=== PATIENT | female | born 1930 | race Caucasian/White ===

== ENCOUNTER 2018-10-28 23:42 | Emergency (ER) | payer MEDICARE ==
[~2018-10-28] VITALS: Ht 144.8 cm; Wt 44.5 kg
--- OUTSIDE RECORDS SUMMARY | 2018-10-28 23:45 | XMS REPORT | Clinical Summary ---
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 Active warfarin (COUMADIN) 2.5 Take 2.5 mg 0 11/15/201 MG tablet by mouth 4 daily. Active predniSONE (DELTASONE) 5 Take 10 mg by 0 MG tablet mouth daily . Active ergocalciferol (VITAMIN Take 50,000 0 D2) 50,000 unit capsule Units by mouth once a week. Active ferrous sulfate 325 (65 Take 325 mg 0 FE) MG tablet by mouth daily with breakfast Pt dont take this med anymore. Active clopidogrel (PLAVIX) 75 Take 75 mg by 0 mg tablet mouth daily. Active hydroxychloroquine Take by mouth 0 (PLAQUENIL) 200 mg tablet daily. Active simvastatin (ZOCOR) 10 MG Take 10 mg by 0 tablet mouth nightly. Active amLODIPine (NORVASC) 5 MG Take 5 mg by 0 tablet mouth daily. Active traMADol (ULTRAM) 50 mg Take 1 tablet 30 tablet 0 tablet (50 mg total) 9 by mouth every 6 (six) hours as needed for Pain. 04/21/2018 Discontinued traMADol (ULTRAM) 50 mg Take 1 tablet 30 tablet 0 tablet (50 mg total) 6 by mouth every 6 (six) hours as needed for Pain. 04/26/2018 cefdinir (OMNICEF) 300 MG Take 1 10 capsule 0 capsule capsule (300 9 mg total) by mouth every 12 (twelve) hours for 5 days. 05/21/2018 metoprolol (TOPROL-XL) 50 Take 1 tablet 60 tablet 0 MG 24 hr tablet (50 mg total) 9 by mouth every 12 (twelve) hours for 30 days. 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 Paroxysmal atrial fibrillation 04/13/2018 PMR (polymyalgia rheumatica) 04/13/2018 Atrial fibrillation with RVR 07/08/2015 Hypotension 07/08/2015 Ischemic colitis 07/08/2015 Polymyalgia rheumatica 07/08/2015 Compression fracture of L4 lumbar vertebra 07/08/2015 CAD (coronary artery disease), [place] coronary artery 07/08/2015 Physical deconditioning 07/08/2015 Coronary atherosclerosis due to calcified coronary lesion of [place] artery 06/21/2015 Acute blood loss anemia 06/21/2015 Lower GI bleed 06/20/2015 Substernal chest pain 04/02/2015 Hypertension 04/02/2015 Precordial pain 03/25/2015 Encounters Care Team Description Date Type Specialty Jerrell Smith MD PACEMAKER GEN & LEADS - INSERTION W/ GENERAL ANESTHESIA (SING/DUAL/MULT) 04/19/2018 Surgery Jerrell Grande Jr., MD 04/19/2018 Anesthesia Event Jerrell Smith MD LASER EXTRACTION,LEAD 04/18/2018 Surgery Ayla Crump MD 04/18/2018 Anesthesia Event Gary Siddiqui MD Parhizgar, Alireza, MD Hyperlipidemia, unspecified hyperlipidemia type; Pacemaker infection, initial encounter ([facility]); Paroxysmal atrial fibrillation (HCC); PMR (polymyalgia rheumatica) ([facility]) 04/13/2018 [facility] Cardiology - Encounter 04/21/2018 Ellen Dorado Ahmad, MD 04/13/2018 Orders Only Internal Medicine after 10/27/2017 Immunizations Name Dates Previously Given Next Due Tdap 11/26/2013 Family History Medical History Relation Name Comments Unremarkable Neg Hx Social History Date Tobacco Use Types Packs/Day Years Used Never Smoker Alcohol Use Drinks/Week oz/Week Comments No Sex Assigned at Date Recorded Not on file Industry Job Start Date Occupation Not on file Not on file Not on file Travel End Travel History Travel Start No recent travel history available. Last Filed Vital Signs Time Taken Vital Sign Reading 04/21/2018 7:43 AM PHP MYSQL DEVELOPER Blood Pressure 138/66 04/21/2018 7:43 AM PHP MYSQL DEVELOPER Pulse 69 04/21/2018 7:43 AM PHP MYSQL DEVELOPER Temperature 36.6 C (97.8 F) 04/21/2018 7:43 AM PHP MYSQL DEVELOPER Respiratory Rate 20 04/21/2018 7:43 AM PHP MYSQL DEVELOPER Oxygen Saturation 97% - Inhaled Oxygen - Concentration 04/21/2018 7:43 AM PHP MYSQL DEVELOPER Weight 42.3 kg (93 lb 4.8 oz) 04/13/2018 8:41 PM PHP MYSQL DEVELOPER Height 146.3 cm (4' 9.6") 04/21/2018 7:43 AM PHP MYSQL DEVELOPER Body Mass Index 19.77 Plan of Treatment Not on file Implants Device Identifier Shelf Expiration Date Model / Serial / Lot Implanted Type Area [facility] 06/09/2019 [id number] / [id number] / Pacemkr Sgl Micra Transcath - Pacemakers Right: Heart [employer]: [id number] CARD Implanted: Qty: 1 on 04/19/2018 by RHY:Jerrell Yan MD S 06/03/2016 [id number] / / [id number] Promus Premier [place] Implanted: Qty: 1 on 03/27/2015 [employer] 08/25/2016 [id number] / [id number] / Advisa Dr Luis Felipe Magana / [id number] [employer] Implanted: Qty: 1 on 04/17/2015 Procedures Comments Procedure Name Priority Date/Time Associated Diagnosis ARRYTHMIA IMPLANT REPORT 06/30/2018 - SCAN 2:22 PM CDT RHYTHM STRIP - SCAN 06/16/2018 9:01 AM CDT ARRYTHMIA IMPLANT REPORT 05/03/2018 - SCAN 3:01 PM PHP MYSQL DEVELOPER RHYTHM STRIP - SCAN 05/03/2018 3:00 PM PHP MYSQL DEVELOPER CARDIAC CATH REPORT - 05/03/2018 SCAN 3:00 PM PHP MYSQL DEVELOPER CBC W/PLT COUNT & AUTO Routine 04/21/2018 DIFFERENTIAL 6:24 AM PHP MYSQL DEVELOPER PT/APTT Routine 04/21/2018 6:24 AM PHP MYSQL DEVELOPER MAGNESIUM Routine 04/21/2018 6:24 AM PHP MYSQL DEVELOPER CBC W/PLT COUNT & AUTO Routine 04/21/2018 DIFFERENTIAL 6:24 AM PHP MYSQL DEVELOPER PHOSPHORUS Routine 04/21/2018 6:24 AM PHP MYSQL DEVELOPER CALCIUM, IONIZED Routine 04/21/2018 6:24 AM PHP MYSQL DEVELOPER BASIC METABOLIC PANEL (7) Routine 04/21/2018 6:24 AM PHP MYSQL DEVELOPER APTT Routine 04/21/2018 12:00 AM PHP MYSQL DEVELOPER ECHOCARDIOGRAM REPORT - 04/20/2018 SCAN 1:52 PM PHP MYSQL DEVELOPER APTT Routine 04/20/2018 1:20 PM PHP MYSQL DEVELOPER PROTHROMBIN TIME/INR Routine 04/20/2018 1:20 PM PHP MYSQL DEVELOPER LIMITED 2D ECHOCARDIOGRAM NEO 04/20/2018 10:32 AM PHP MYSQL DEVELOPER CBC W/PLT COUNT & AUTO Routine 04/20/2018 DIFFERENTIAL 4:58 AM PHP MYSQL DEVELOPER BASIC METABOLIC PANEL (7) Routine 04/20/2018 4:58 AM PHP MYSQL DEVELOPER CBC W/PLT COUNT & AUTO Routine 04/20/2018 DIFFERENTIAL 4:58 AM PHP MYSQL DEVELOPER APTT Routine 04/20/2018 4:58 AM PHP MYSQL DEVELOPER XR CHEST 1 VIEW Routine 04/19/2018 PORTABLE/BEDSIDE 8:48 PM PHP MYSQL DEVELOPER ECHOCARDIOGRAM REPORT - 04/19/2018 SCAN 7:50 PM PHP MYSQL DEVELOPER TRANSFUSION SERVICE 04/19/2018 REPORT - SCAN 6:00 PM PHP MYSQL DEVELOPER PACEMAKER GEN & LEADS - 04/19/2018 AV block INSERTION W/ GENERAL 5:13 PM PHP MYSQL DEVELOPER ANESTHESIA (SING/DUAL/MULT) Case Notes [id number] LIMITED 2D ECHOCARDIOGRAM NEO 04/19/2018 2:52 PM PHP MYSQL DEVELOPER APTT Routine 04/19/2018 1:58 AM PHP MYSQL DEVELOPER CBC W/PLT COUNT & AUTO Routine 04/19/2018 DIFFERENTIAL 1:54 AM PHP MYSQL DEVELOPER MAGNESIUM Routine 04/19/2018 1:54 AM PHP MYSQL DEVELOPER PHOSPHORUS Routine 04/19/2018 1:54 AM PHP MYSQL DEVELOPER CALCIUM, IONIZED Routine 04/19/2018 1:54 AM PHP MYSQL DEVELOPER BASIC METABOLIC PANEL (7) Routine 04/19/2018 1:54 AM PHP MYSQL DEVELOPER CBC W/PLT COUNT & AUTO Routine 04/19/2018 DIFFERENTIAL 1:54 AM PHP MYSQL DEVELOPER APTT Routine 04/18/2018 6:32 PM PHP MYSQL DEVELOPER TRANSFUSION SERVICE 04/18/2018 REPORT - SCAN 6:00 PM PHP MYSQL DEVELOPER PREPARE RBC STAT 04/18/2018 12:15 PM PHP MYSQL DEVELOPER XR CHEST 1 VIEW Routine 04/18/2018 PORTABLE/BEDSIDE 12:14 PM PHP MYSQL DEVELOPER SURGICALLY OBTAINED STAT 04/18/2018 CULTURE + GRAM STAIN 11:25 AM PHP MYSQL DEVELOPER FUNGUS CULTURE + SMEAR STAT 04/18/2018 11:25 AM PHP MYSQL DEVELOPER ANAEROBIC CULTURE STAT 04/18/2018 11:25 AM PHP MYSQL DEVELOPER AFB CULTURE + SMEAR STAT 04/18/2018 11:25 AM PHP MYSQL DEVELOPER SURGICALLY OBTAINED STAT 04/18/2018 CULTURE + GRAM STAIN 11:18 AM PHP MYSQL DEVELOPER FUNGUS CULTURE + SMEAR STAT 04/18/2018 11:18 AM PHP MYSQL DEVELOPER ANAEROBIC CULTURE STAT 04/18/2018 11:18 AM PHP MYSQL DEVELOPER AFB CULTURE + SMEAR STAT 04/18/2018 11:18 AM PHP MYSQL DEVELOPER SURGICALLY OBTAINED STAT 04/18/2018 CULTURE + GRAM STAIN 11:06 AM PHP MYSQL DEVELOPER FUNGUS CULTURE + SMEAR STAT 04/18/2018 11:06 AM PHP MYSQL DEVELOPER ANAEROBIC CULTURE STAT 04/18/2018 11:06 AM PHP MYSQL DEVELOPER AFB CULTURE + SMEAR STAT 04/18/2018 11:06 AM PHP MYSQL DEVELOPER ANESTHESIA ABY Routine 04/18/2018 9:53 AM PHP MYSQL DEVELOPER ABY 04/18/2018 Pacemaker infection, 8:45 AM PHP MYSQL DEVELOPER initial encounter (HCC) LASER EXTRACTION,LEAD 04/18/2018 Pacemaker infection, 8:45 AM PHP MYSQL DEVELOPER initial encounter (HCC) CBC W/PLT COUNT & AUTO Routine 04/18/2018 DIFFERENTIAL 2:07 AM PHP MYSQL DEVELOPER PROTHROMBIN TIME/INR STAT 04/18/2018 2:07 AM PHP MYSQL DEVELOPER MAGNESIUM Routine 04/18/2018 2:07 AM PHP MYSQL DEVELOPER PHOSPHORUS Routine 04/18/2018 2:07 AM PHP MYSQL DEVELOPER CALCIUM, IONIZED Routine 04/18/2018 2:07 AM PHP MYSQL DEVELOPER BASIC METABOLIC PANEL (7) Routine 04/18/2018 2:07 AM PHP MYSQL DEVELOPER CBC W/PLT COUNT & AUTO Routine 04/18/2018 DIFFERENTIAL 2:07 AM PHP MYSQL DEVELOPER APTT Routine 04/18/2018 2:07 AM PHP MYSQL DEVELOPER VANCOMYCIN LEVEL, TROUGH Timed 04/18/2018 2:07 AM PHP MYSQL DEVELOPER APTT Routine 04/17/2018 8:14 PM PHP MYSQL DEVELOPER APTT Routine 04/17/2018 12:20 PM PHP MYSQL DEVELOPER TYPE AND SCREEN, STAT 04/17/2018 AUTOMATED 7:11 AM PHP MYSQL DEVELOPER CBC W/PLT COUNT & AUTO Routine 04/17/2018 DIFFERENTIAL 12:47 AM PHP MYSQL DEVELOPER MAGNESIUM Routine 04/17/2018 12:47 AM PHP MYSQL DEVELOPER PHOSPHORUS Routine 04/17/2018 12:47 AM PHP MYSQL DEVELOPER CALCIUM, IONIZED Routine 04/17/2018 12:47 AM PHP MYSQL DEVELOPER APTT Routine 04/17/2018 12:47 AM PHP MYSQL DEVELOPER BASIC METABOLIC PANEL (7) Routine 04/17/2018 12:47 AM PHP MYSQL DEVELOPER CBC W/PLT COUNT & AUTO Routine 04/17/2018 DIFFERENTIAL 12:47 AM PHP MYSQL DEVELOPER VANCOMYCIN LEVEL, TROUGH Timed 04/17/2018 12:47 AM PHP MYSQL DEVELOPER CBC W/PLT COUNT & AUTO Routine 04/16/2018 DIFFERENTIAL 12:58 AM PHP MYSQL DEVELOPER APTT Routine 04/16/2018 12:58 AM PHP MYSQL DEVELOPER PROTHROMBIN TIME/INR Routine 04/16/2018 12:58 AM PHP MYSQL DEVELOPER BASIC METABOLIC PANEL (7) Routine 04/16/2018 12:58 AM PHP MYSQL DEVELOPER CBC W/PLT COUNT & AUTO Routine 04/16/2018 DIFFERENTIAL 12:58 AM PHP MYSQL DEVELOPER APTT Routine 04/15/2018 6:01 PM PHP MYSQL DEVELOPER TRANSFUSION SERVICE 04/15/2018 REPORT - SCAN 6:00 PM PHP MYSQL DEVELOPER APTT Routine 04/15/2018 11:11 AM PHP MYSQL DEVELOPER CBC W/PLT COUNT & AUTO Routine 04/15/2018 DIFFERENTIAL 3:48 AM PHP MYSQL DEVELOPER MAGNESIUM Routine 04/15/2018 3:48 AM PHP MYSQL DEVELOPER PHOSPHORUS Routine 04/15/2018 3:48 AM PHP MYSQL DEVELOPER BASIC METABOLIC PANEL (7) Routine 04/15/2018 3:48 AM PHP MYSQL DEVELOPER CBC W/PLT COUNT & AUTO Routine 04/15/2018 DIFFERENTIAL 3:48 AM PHP MYSQL DEVELOPER APTT Routine 04/15/2018 3:16 AM PHP MYSQL DEVELOPER CALCIUM, IONIZED Routine 04/15/2018 3:16 AM PHP MYSQL DEVELOPER PROTHROMBIN TIME/INR Routine 04/15/2018 3:16 AM PHP MYSQL DEVELOPER VANCOMYCIN LEVEL, TROUGH Timed 04/14/2018 11:20 PM PHP MYSQL DEVELOPER APTT Routine 04/14/2018 11:20 PM PHP MYSQL DEVELOPER APTT Routine 04/14/2018 3:59 PM PHP MYSQL DEVELOPER CBC W/PLT COUNT & AUTO Routine 04/14/2018 DIFFERENTIAL 5:37 AM PHP MYSQL DEVELOPER TYPE AND SCREEN, Routine 04/14/2018 AUTOMATED 5:37 AM PHP MYSQL DEVELOPER APTT Routine 04/14/2018 5:37 AM PHP MYSQL DEVELOPER PROTHROMBIN TIME/INR Routine 04/14/2018 5:37 AM PHP MYSQL DEVELOPER TSH/FREE T4 IF INDICATED Routine 04/14/2018 5:37 AM PHP MYSQL DEVELOPER MAGNESIUM Routine 04/14/2018 5:37 AM PHP MYSQL DEVELOPER PHOSPHORUS Routine 04/14/2018 5:37 AM PHP MYSQL DEVELOPER CALCIUM, IONIZED Routine 04/14/2018 5:37 AM PHP MYSQL DEVELOPER BASIC METABOLIC PANEL (7) Routine 04/14/2018 5:37 AM PHP MYSQL DEVELOPER CBC W/PLT COUNT & AUTO Routine 04/14/2018 DIFFERENTIAL 5:37 AM PHP MYSQL DEVELOPER APTT Routine 04/13/2018 6:49 PM PHP MYSQL DEVELOPER PROTHROMBIN TIME/INR Routine 04/13/2018 6:49 PM PHP MYSQL DEVELOPER BASIC METABOLIC PANEL (7) Routine 04/13/2018 6:49 PM PHP MYSQL DEVELOPER BLOOD CULTURE Routine 04/13/2018 6:49 PM PHP MYSQL DEVELOPER BLOOD CULTURE Routine 04/13/2018 6:49 PM PHP MYSQL DEVELOPER after 10/27/2017 Results * ARRYTHMIA IMPLANT REPORT - SCAN (06/30/2018 2:22 PM CDT) Only the most recent of 2 results within the time period is included. Narrative Performed At * RHYTHM STRIP - SCAN (06/16/2018 9:01 AM CDT) Only the most recent of 2 results within the time period is included. Narrative Performed At * CARDIAC CATH REPORT - SCAN (05/03/2018 3:00 PM PHP MYSQL DEVELOPER) Narrative Performed At * PT/aPTT (04/21/2018 6:24 AM PHP MYSQL DEVELOPER) Protime 16.1 (H) 11.7 - 14.7 seconds [facility] INR 1.3 <=5.9 [facility] PTT 103.9 (H) 22.5 - 36.0 seconds [facility] Specimen Blood Narrative Performed At RECOMMENDED COUMADIN/WARFARIN INR THERAPY RANGES [facility] STANDARD DOSE: 2.0 - 3.0 Includes: PROPHYLAXIS for venous thrombosis, [facility] systemic embolization; TREATMENT for venous thrombosis and/or pulmonary embolus. HIGH RISK: Target INR is 2.5-3.5 for patients with mechanical heart valves. Performing Organization Address City/[facility] Hospitalcode Phone Number [address] [address] [facility] * Calcium, Ionized (04/21/2018 6:24 AM PHP MYSQL DEVELOPER) Only the most recent of 6 results within the time period is included. Calcium, Ion 1.18 1.12 - 1.27 mmol/L [facility] pH, Blood 7.36 [facility] Specimen Blood Performing Organization Address City/[facility]/Zipcode Phone Number [facility] [address] [place] [address] [facility] * CBC with platelet count + automated diff (04/21/2018 6:24 AM PHP MYSQL DEVELOPER) Only the most recent of 8 results within the time period is included. WBC 5.0 3.5 - 10.5 K/L [facility] RBC 4.11 3.93 - 5.22 M/L [facility] Hemoglobin 10.6 (L) 11.2 - 15.7 GM/DL [facility] Hematocrit 33.9 (L) 34.1 - 44.9 % [facility] MCV 82.5 79.4 - 94.8 fL [facility] MCH 25.8 25.6 - 32.2 pg [facility] MCHC 31.3 (L) 32.2 - 35.5 GM/DL [facility] RDW 18.6 (H) 11.7 - 14.4 % [facility] Platelets 191 150 - 450 K/CU MM [facility] MPV 10.9 9.4 - 12.3 fL [facility] nRBC 0 0 - 0 /100 WBC [facility] % Neutros 60 % [facility] % Lymphs 24 % [facility] % Monos 10 % [facility] % Eos 6 % [facility] % Baso 1 % [facility] # Neutros 2.98 1.56 - 6.13 K/L [facility] # Lymphs 1.17 (L) 1.18 - 3.74 K/L [facility] # Monos 0.49 (H) 0.24 - 0.36 K/L [facility] # Eos 0.29 0.04 - 0.36 K/L [facility] # Baso 0.04 0.01 - 0.08 K/L [facility] Immature 0 0 - 1 % [facility] Specimen Blood Performing Organization Address City/[facility] Hospitalcode Phone Number [facility] [address] [place] [address] [phone] [place] [address] * Phosphorus (04/21/2018 6:24 AM PHP MYSQL DEVELOPER) Only the most recent of 6 results within the time period is included. Phosphorus 3.3 2.3 - 4.7 mg/dL [facility] Specimen Blood Performing Organization Address City/[facility]/Zipcode Phone Number [facility] [address] [place] [address] [phone] [place] [address] * Magnesium (04/21/2018 6:24 AM PHP MYSQL DEVELOPER) Only the most recent of 6 results within the time period is included. Magnesium 1.9 1.6 - 2.6 mg/dL [facility] Specimen Blood Performing Organization Address City/[facility] Hospitalcomn Phone Number [address] [address] [phone] [place] [address] * Basic Metabolic Panel (04/21/2018 6:24 AM PHP MYSQL DEVELOPER) Only the most recent of 9 results within the time period is included. Sodium 140 136 - 145 meq/L [facility] Potassium 3.6 3.5 - 5.1 meq/L [facility] Chloride 105 98 - 107 meq/L [facility] CO2 26 22 - 29 meq/L [facility] BUN 12 7 - 21 mg/dL [facility] Creatinine 0.72 0.57 - 1.25 mg/dL [facility] Glucose 102 70 - 105 mg/dL [facility] Calcium 9.7 8.4 - 10.2 mg/dL [facility] EGFR 77Comment: ESTIMATED GFR IS mL/min/1.73 sq m [facility] NOT ACCURATE CREATININE [facility] CLEARANCE IN PREDICTING GLOMERULAR FILTRATION RATE. ESTIMATED GFR IS NOT APPLICABLE FOR DIALYSIS PATIENTS. Specimen Blood Performing Organization Address City/[facility]/[place] [address] [phone] [place] [address] * aPTT (04/21/2018 12:00 AM PHP MYSQL DEVELOPER) Only the most recent of 17 results within the time period is included. PTT 55.8 (H) 22.5 - 36.0 seconds [facility] Specimen Blood Performing Organization Address [facility] Hospitalcode Phone Number [address] [address] [phone] [place] [address] * ECHOCARDIOGRAM REPORT - SCAN (04/20/2018 1:52 PM PHP MYSQL DEVELOPER) Narrative Performed At * Prothrombin time/INR (04/20/2018 1:20 PM PHP MYSQL DEVELOPER) Only the most recent of 6 results within the time period is included. Protime 14.9 (H) 11.7 - 14.7 seconds [facility] INR 1.2 <=5.9 [facility] Specimen Blood Narrative Performed At RECOMMENDED COUMADIN/WARFARIN INR THERAPY RANGES [facility] STANDARD DOSE: 2.0 - 3.0 Includes: PROPHYLAXIS for venous thrombosis, [facility] systemic embolization; TREATMENT for venous thrombosis and/or pulmonary embolus. HIGH RISK: Target INR is 2.5-3.5 for patients with mechanical heart valves. Performing Organization Address [facility] Hospitalcode Phone Number [place] [phone] * Limited 2D Echocardiogram (04/20/2018 10:32 AM PHP MYSQL DEVELOPER) Ejection Fraction [facility] Specimen Narrative Performed At Transthoracic Echocardiography Report (TTE) [facility]ographics [facility] Patient Name Radha HUYNHte of Study 04/20/2018 LOREN [id number] Female Visit Number [id number] Room Number C622 Number Date of Birth2Referring Physician Luis Allan MD Age87 year(s)Medical Collector Baldomero Woodceli Interpreting Prabhjot Chi Physician Fellow SUNITA Lundberg Procedure Type of Study TTE procedure:LIMITED 2D ECHOCARDIOGRAM (NEO) Indications:Suspected Pericardial conditions. Clinical History HGB 10.5 HCT 34.2 % ANEMIA CAD HLD HTN fib pneumonia s/p micra leadless pacemaker 04/19/18 Height: 58.6 inches Weight: 41.28 kg (91 lbs) BSA: 1.31 m^2 BMI: 18.63 kg/m^2 HR: 104 bpm BP: 118/68 mmHg Summary The left ventricle is chamber size (by vol index) is normal (female - LVED vol - 29-61ml/m2). No evidence of LV hypertrophy. All of the LV segments contract normally . LVEF by [place]'s method of disk assessment is normal (>60%) . RV chamber size is moderately enlarged . Global RV systolic function is normal . Oazeeqgz-hf-bmuasp tricuspid regurgitation. Estimated peak systolic pressure is at least 40-45 mmHg. Previous Study On comparison with prior exam on 04/19/18 , there are no significant changes. Signature Findings Technical Quality: Technically adequate exam. Rhythm/BPAtrial fibrillation during the exam. Left Ventricle The left ventricle is chamber size (by vol index) is normal (female - LVED vol - 29-61ml/m2). No evidence of LV hypertrophy. All of the LV segments contract normally . LVEF by [place]'s method of disk assessment is normal (>60%) . Left AtriumLA size is severely enlarged (>48 ml/m2) . Right VentricleRV chamber size is moderately enlarged . Global RV systolic function is normal . Right Atrium RA cavity size is severely enlarged . Aortic Valve Normal AoV structure. Mitral Valve Mild MV leaflet thickening. Mild mitral annular calcification. Tricuspid ValveTV structure is normal. Ixpcauxf-dn-ccmjju tricuspid regurgitation. Estimated peak systolic pressure is at least 40-45 mmHg. Pulmonic Valve Normal PV structure. AortaAortic root size (SInus of Valsalva diameter) is normal . PericardiumNo pericardial effusion is visualized. IVC/SVC/PA/PV/PleuralThe estimated RA pressure by IVC dynamics 5-10mmHg. Chambers/Structures Left Atrium LA Volume: 101.44 mlLA Area: 28.47 cm^2 LA Vol. Index: 77 ml/m^2 Left Ventricle LVIDd: 3.79 cm LVIDs: 3.27 cm LV Septum Diastolic: 0.75 cm LV PW Diastolic: 0.9 cm LV FS: 13.7 % LVEDV [place]'s:42.32 ml LVESV [place]'s:18.91 mlLVEDVI: 32 ml/m^2 LVEF [place]'s: 55.3 %LVESVI: 14 ml/m^2 LVOT Diameter: 2.12 cm Right Atrium RA Vol. (Sngl Plane): 75.7 ml Doppler/Quantitative Measurements LVOT LVOT Diameter: 2.12 cm LVOT Area: 3.53 cm^2 Tricuspid Valve TR Velocity: 2.91 m/s TR Gradient: 33.87 mmHg Procedure Note Interface, External Ris In - 04/20/2018 1:19 PM PHP MYSQL DEVELOPER Transthoracic Echocardiography Report (TTE) Demographics Patient Name VANIA HUYNH Date of Study 04/20/2018 LOREN N [id number] Gender Female Visit Number [id number] Race Unknown Room Number C622 Number Date of 1930 Referring Physician Luis Allan MD Age 87 year(s) Medical Collector Baldomero Andrade Interpreting Prabhjot Chi, Physician Fellow SUNITA Lundberg Procedure Type of Study TTE procedure:LIMITED 2D ECHOCARDIOGRAM (NEO) Indications:Suspected Pericardial conditions. Clinical History HGB 10.5 HCT 34.2 % ANEMIA CAD HLD HTN fib pneumonia s/p micra leadless pacemaker 04/19/18 Height: 58.6 inches Weight: 41.28 kg (91 lbs) BSA: 1.31 m^2 BMI: 18.63 kg/m^2 HR: 104 bpm BP: 118/68 mmHg Summary The left ventricle is chamber size (by vol index) is normal (female - LVED vol - 29-61ml/m2). No evidence of LV hypertrophy. All of the LV segments contract normally . LVEF by [place]'s method of disk assessment is normal (>60%) . RV chamber size is moderately enlarged . Global RV systolic function is normal . Ivbxqklj-jg-ntymcp tricuspid regurgitation. Estimated peak systolic pressure is at least 40-45 mmHg. Previous Study On comparison with prior exam on 04/19/18 , there are no significant changes. Signature Findings Technical Quality: Technically adequate exam. Rhythm/BP Atrial fibrillation during the exam. Left Ventricle The left ventricle is chamber size (by vol index) is normal (female - LVED vol - 29-61ml/m2). No evidence of LV hypertrophy. All of the LV segments contract normally . LVEF by [place]'s method of disk assessment is normal (>60%) . Left Atrium LA size is severely enlarged (>48 ml/m2) . Right Ventricle RV chamber size is moderately enlarged . Global RV systolic function is normal . Right Atrium RA cavity size is severely enlarged . Aortic Valve Normal AoV structure. Mitral Valve Mild MV leaflet thickening. Mild mitral annular calcification. Tricuspid Valve TV structure is normal. Mpwokwfl-eb-ehnduy tricuspid regurgitation. Estimated peak systolic pressure is at least 40-45 mmHg. Pulmonic Valve Normal PV structure. Aorta Aortic root size (SInus of Valsalva diameter) is normal . Pericardium No pericardial effusion is visualized. IVC/SVC/PA/PV/Pleural The estimated RA pressure by IVC dynamics 5-10mmHg. Chambers/Structures Left Atrium LA Volume: 101.44 ml LA Area: 28.47 cm^2 LA Vol. Index: 77 ml/m^2 Left Ventricle LVIDd: 3.79 cm LVIDs: 3.27 cm LV Septum Diastolic: 0.75 cm LV PW Diastolic: 0.9 cm LV FS: 13.7 % LVEDV France's:42.32 ml LVESV France's:18.91 ml LVEDVI: 32 ml/m^2 LVEF France's: 55.3 % LVESVI: 14 ml/m^2 LVOT Diameter: 2.12 cm Right Atrium RA Vol. (Sngl Plane): 75.7 ml Doppler/Quantitative Measurements LVOT LVOT Diameter: 2.12 cm LVOT Area: 3.53 cm^2 Tricuspid Valve TR Velocity: 2.91 m/s TR Gradient: 33.87 mmHg Performing Organization Address City/State/Zipcode Phone Number [facility] * XR chest 1 view portable / bedside (04/19/2018 8:48 PM PHP MYSQL DEVELOPER) Only the most recent of 2 results within the time period is included. Specimen Narrative Performed At FINAL REPORT [facility] History: Postop leadless pacemaker placement. Comparison: 04/18/2018 Findings: A single view of the chest is submitted. The examination is limited by rotation to the left. An intraventricular leadless pacemaker overlies the left heart shadow. The cardiac silhouette is within normal limits for size. There is atherosclerotic calcification of the aorta. The lung volumes remain low. Mild central pulmonary vascular prominence may relate to low lung volumes or represent mild vascular engorgement. There is no pneumothorax, large pleural effusion or acute bony abnormality. Signed: Juan Gil MD Report Verified Date/Time:04/19/2018 21:20:09 Reading Location: [address] Reading Room Procedure Note Interface, External Ris In - 04/19/2018 9:22 PM PHP MYSQL DEVELOPER FINAL REPORT History: Postop leadless pacemaker placement. Comparison: 04/18/2018 Findings: A single view of the chest is submitted. The examination is limited by rotation to the left. An intraventricular leadless pacemaker overlies the left heart shadow. The cardiac silhouette is within normal limits for size. There is atherosclerotic calcification of the aorta. The lung volumes remain low. Mild central pulmonary vascular prominence may relate to low lung volumes or represent mild vascular engorgement. There is no pneumothorax, large pleural effusion or acute bony abnormality. Signed: Juan Gil MD Report Verified Date/Time: 04/19/2018 21:20:09 Reading Location: [address] Reading Room Performing Organization Address City/State/Zipcode Phone Number GE [facility] * ECHOCARDIOGRAM REPORT - SCAN (04/19/2018 7:50 PM PHP MYSQL DEVELOPER) Narrative Performed At * TRANSFUSION SERVICE REPORT - SCAN (04/19/2018 6:00 PM PHP MYSQL DEVELOPER) Only the most recent of 3 results within the time period is included. 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 Coulter, RDCSPhysician MD Procedure Type of Study TTE procedure:LIMITED 2D ECHOCARDIOGRAM (NEO) Indications:Suspected Pericardial conditions. Clinical History Anemia, CAD, PCI (2006), HLD, HTN, PAF, PNA, PPM (04/17/15), PMR HGB 9.8 HCT 31.7 % Height: 59 inches Weight: 41.28 kg (91 lbs) BSA: 1.32 m^2 BMI: 18.38 kg/m^2 HR: 92 bpm BP: 129/61 mmHg Summary 1. No significant pericardial effusion is visualized. 2. Estimated LVEF by qualitative assessment is increased (>70%) . 3. The estimated RA pressure by IVC dynamics 11-15mmHg . RV chamber size appears moderately enlarged by limited views . Global RV systolic function is normal . 4. Severe biatrial enlargement. Previous Study No prior studies available for comparison. Signature Findings Technical Quality: Good visualization Rhythm/BPAtrial fibrillation with rapid ventricular response. Left Ventricle The LV endocardium is adequately visualized. The left ventricle is chamber size (by vol index) is normal (female - LVED vol - 29-61ml/m2). Normal LV wall thickness. Global LV systolic function hyperdynamic . Estimated LVEF by qualitative assessment is increased (>70%) . Left AtriumLA size is severely enlarged (>48 ml/m2) . Right VentricleRV chamber size appears moderately enlarged by limited views . Global RV systolic function is normal . Right Atrium RA size is severely dilated. Aortic Valve Normal AoV structure by available views. Mitral Valve Mild mitral annular calcification. Tricuspid ValveTV structure is normal. Pulmonic Valve PV is not visualized. AortaAortic root size (SInus of Valsalva diameter) is normal . PericardiumNo significant pericardial effusion is visualized. IVC/SVC/PA/PV/PleuralThe estimated RA pressure by IVC dynamics 11-15mmHg . The inferior vena cava size is mildly increased . The inferior vena cava is adequately visualized. Chambers/Structures Left Atrium LA Volume: 108.35 mlLA Area: 30.15 cm^2 LA Vol. Index: 82 ml/m^2 Left Ventricle LVIDd: 4.44 cm LVIDs: 2.59 cm LV Septum Diastolic: 0.73 cm LV PW Diastolic: 0.82 cmLV FS: 41.7 % LVEDV France's:49.12 ml LVEDVI: 37 ml/m^2 LVOT Diameter: 1.88 cm Aorta Ao Root S of Anali.: 2.69 cm Doppler/Quantitative Measurements LVOT LVOT Diameter: 1.88 cm LVOT Area: 2.78 cm^2 Procedure Note Interface, External Ris In - 04/19/2018 7:29 PM PHP MYSQL DEVELOPER Transthoracic Echocardiography Report (TTE) Demographics Patient Name VANIA HUYNH Date of Study 04/19/2018 LOREN Gender Female Visit Number [id number] Race Unknown Room Number 1160 Number Date of 1930 Referring Physician Luis Allan MD Age 87 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 Clinical History Anemia, CAD, PCI (2006), HLD, HTN, PAF, PNA, PPM (04/17/15), PMR HGB 9.8 HCT 31.7 % Height: 59 inches Weight: 41.28 kg (91 lbs) BSA: 1.32 m^2 BMI: 18.38 kg/m^2 HR: 92 bpm BP: 129/61 mmHg Summary 1. No significant pericardial effusion is visualized. 2. Estimated LVEF by qualitative assessment is increased (>70%) . 3. The estimated RA pressure by IVC dynamics 11-15mmHg . RV chamber size appears moderately enlarged by limited views . Global RV systolic function is normal . 4. Severe biatrial enlargement. Previous Study No prior studies available for comparison. Signature Findings Technical Quality: Good visualization Rhythm/BP Atrial fibrillation with rapid ventricular response. Left Ventricle The LV endocardium is adequately visualized. The left ventricle is chamber size (by vol index) is normal (female - LVED vol - 29-61ml/m2). Normal LV wall thickness. Global LV systolic function hyperdynamic . Estimated LVEF by qualitative assessment is increased (>70%) . Left Atrium LA size is severely enlarged (>48 ml/m2) . Right Ventricle RV chamber size appears moderately enlarged by limited views . Global RV systolic function is normal . Right Atrium RA size is severely dilated. Aortic Valve Normal AoV structure by available views. Mitral Valve Mild mitral annular calcification. Tricuspid Valve TV structure is normal. Pulmonic Valve PV is not visualized. Aorta Aortic root size (SInus of Valsalva diameter) is normal . Pericardium No significant pericardial effusion is visualized. IVC/SVC/PA/PV/Pleural The estimated RA pressure by IVC dynamics 11-15mmHg . The inferior vena cava size is mildly increased . The inferior vena cava is adequately visualized. Chambers/Structures Left Atrium LA Volume: 108.35 ml LA Area: 30.15 cm^2 LA Vol. Index: 82 ml/m^2 Left Ventricle LVIDd: 4.44 cm LVIDs: 2.59 cm LV Septum Diastolic: 0.73 cm LV PW Diastolic: 0.82 cm LV FS: 41.7 % LVEDV France's:49.12 ml LVEDVI: 37 ml/m^2 LVOT Diameter: 1.88 cm Aorta Ao Root S of Anali.: 2.69 cm Doppler/Quantitative Measurements LVOT LVOT Diameter: 1.88 cm LVOT Area: 2.78 cm^2 Performing Organization Address City/State/Zipcode Phone Number [facility] [employer] [email or web address] * Prepare RBC (04/18/2018 12:15 PM PHP MYSQL DEVELOPER) CROSSMATCH COMPATIBLE SAFETRACE TX Unit ABO A Pos SAFETRACE TX UNIT NUMBER [id number] SAFETRACE TX Status RETURNED FROM ISSUE SAFETRACE TX Blood Bank Product RED BLOOD CELLS SAFETRACE TX PRODUCT CODE [id number] SAFETRACE TX CROSSMATCH COMPATIBLE SAFETRACE TX Unit ABO A Pos SAFETRACE TX UNIT NUMBER [id number] SAFETRACE TX Status RETURNED FROM ISSUE SAFETRACE TX Blood Bank Product RED BLOOD CELLS SAFETRACE TX PRODUCT CODE [id number] SAFETRACE TX CROSSMATCH COMPATIBLE SAFETRACE TX Unit ABO A Pos SAFETRACE TX UNIT NUMBER [id number] SAFETRACE TX Status RETURNED FROM ISSUE SAFETRACE TX Blood Bank Product RED BLOOD CELLS SAFETRACE TX PRODUCT CODE [id number] SAFETRACE TX CROSSMATCH COMPATIBLE SAFETRACE TX Unit ABO A Pos SAFETRACE TX UNIT NUMBER [id number] SAFETRACE TX Status RETURNED FROM ISSUE SAFETRACE TX Blood Bank Product RED BLOOD CELLS SAFETRACE TX PRODUCT CODE [id number] SAFETRACE TX Performing Organization Address [facility] Phone Number SAFETRACE [place] * AFB culture + smear (04/18/2018 11:25 AM PHP MYSQL DEVELOPER) Only the most recent of 3 results within the time period is included. Result No acid-fast bacilli isolated [facility] in 42 days [facility] AFB Smear No acid fast bacilli seen [facility] Specimen Other Performing Organization Address [facility] Phone Number [id number] [place] [address] [phone] * Anaerobic culture (04/18/2018 11:25 AM PHP MYSQL DEVELOPER) Only the most recent of 3 results within the time period is included. Result No anaerobes isolated [facility] Specimen Other Performing Organization Address [facility] Phone Number [address] [address] [facility] * Surgically obtained culture + gram stain (04/18/2018 11:25 AM PHP MYSQL DEVELOPER) Only the most recent of 3 results within the time period is included. Result No growth [facility] Gram Stain Result No WBCs [facility] Gram Stain Result No organisms seen [facility] Specimen Other Performing Organization Address City/[facility] Phone Number [address] [address] [place] [address] [facility] * Fungus culture + smear (04/18/2018 11:25 AM PHP MYSQL DEVELOPER) Only the most recent of 3 results within the time period is included. Result No fungus isolated in 28 days [facility] Fungus Smear No hyphal elements seen [facility] Specimen Other Performing Organization Address City/State/Zipcode Phone Number [address] [address] [facility] * ABY (04/18/2018 9:53 AM PHP MYSQL DEVELOPER) Narrative Performed At Jose Antonio Cochran MD 04/18/2018 11:03 AM ABY Date: 04/18/2018 9:53 AM Sex: Female Location: OR Requesting Physician: Jerrell Smith MD Examiner: Jose Antonio Cochran MD IntubatedSedated Patient screened for esoph disease: Yes Insertion: easy Probe Type: multiplane Modalities: 2D, CFM, CWD and PWD Inotrope: none Pre Intervention Summary: Aorta: No aneurysm, no dissection, no mobile plaques. AV: trileaflet morphology, no aortic stenosis, trace central aortic regurgitation LV: normal chamber size, no LVH, grossly normal systolic function (EF 55% by qualitative assessment), no RWMA, no thrombus MV: normal morphology, mild mitral regurgitation, no mitral stenosis LA: no CLARENCE thrombus, velocities >40cm/s by pulse wave doppler. PV: limited visualization RV: dilated chamber, grossly normal function, no apparent thrombus or vegetation on device leads. Estimated PASP 17mmHg above CVP. TV: normal morphology, moderate tricuspid regurgitation with device leads across tricuspid valve. RA: no thrombus. Prominent left to right valsalva. Small, 3mm pericardial effusion present pre-intervention. PFO present by color dopper flow. All findings communicated to surgical team. Post Intervention Summary: Procedure Note Jose Antonio Cochran MD - 04/18/2018 9:53 AM PHP MYSQL DEVELOPER ABY Date: 04/18/2018 9:53 AM Sex: Female Location: OR Requesting Physician: Jerrell Smith MD Examiner: Jose Antonio Cochran MD Intubated Sedated Patient screened for esoph disease: Yes Insertion: easy Probe Type: multiplane Modalities: 2D, CFM, CWD and PWD Inotrope: none Pre Intervention Summary: Aorta: No aneurysm, no dissection, no mobile plaques. AV: trileaflet morphology, no aortic stenosis, trace central aortic regurgitation LV: normal chamber size, no LVH, grossly normal systolic function (EF 55% by qualitative assessment), no RWMA, no thrombus MV: normal morphology, mild mitral regurgitation, no mitral stenosis LA: no CLARENCE thrombus, velocities >40cm/s by pulse wave doppler. PV: limited visualization RV: dilated chamber, grossly normal function, no apparent thrombus or vegetation on device leads. Estimated PASP 17mmHg above CVP. TV: normal morphology, moderate tricuspid regurgitation with device leads across tricuspid valve. RA: no thrombus. Prominent left to right valsalva. Small, 3mm pericardial effusion present pre-intervention. PFO present by color dopper flow. All findings communicated to surgical team. Post Intervention Summary: * Vancomycin level, trough (04/18/2018 2:07 AM PHP MYSQL DEVELOPER) Only the most recent of 3 results within the time period is included. Vancomycin Tr 12.9 10.0 - 20.0 ug/mL [facility] Specimen Blood Performing Organization Address [facility] Phone Number [address] * Type and screen, automated (04/17/2018 7:11 AM PHP MYSQL DEVELOPER) Only the most recent of 2 results within the time period is included. ABO/RH AUTOMATED (BEAKER) AB POSITIVE [facility] Ab Scrn NEGATIVE [facility] Specimen Blood Performing Organization Address [facility] Phone Number [address] * TSH/Free T4 If Indicated (04/14/2018 5:37 AM PHP MYSQL DEVELOPER) TSH 1.97 0.35 - 4.94 uIU/mL [facility] Specimen Blood Performing Organization Address City/[facility] Phone Number [facility] [address] [place] [address] [facility] * Blood culture (04/13/2018 6:49 PM PHP MYSQL DEVELOPER) Only the most recent of 2 results within the time period is included. Result No growth in 5 days [facility] Specimen Blood Performing Organization Address City/State/Zipcode Phone Number [facility] [address] [place], [place] [phone] [facility] after 10/27/2017 Insurance Payer Benefit Subscriber ID Type Phone Address Plan / Group MEDICARE MEDICARE A xxxxxxxxxxx Medicare B MCR SUPPLEMENT/INDIVIDUAL AARP/UNITE xxxxxxxxxxx Medigap D HEALTHCARE Advance Directives Patient has advance care planning documents, and code status on file. For more i nformation, please contact: [phone] [place], [place] [phone] Date Inactivated Comments Code Status Date Activated Full Code 04/14/2018 7:19 AM This code status was determined by: Patient 04/14/2018 7:19 AM Full Code 04/13/2018 5:54 PM This code status was determined by: Patient 04/18/2015 8:51 PM Full Code 04/17/2015 7:13 AM This code status was determined by: Patient 04/03/2015 1:55 PM Full Code 04/02/2015 1:15 PM This code status was determined by: Patient 03/28/2015 5:08 PM Full Code 03/25/2015 6:22 PM This code status was determined by: Patient
--- OUTSIDE RECORDS SUMMARY | 2018-10-28 23:46 | XMS REPORT ---
[facility] Address Unknown Phone Unavailable Care Team Providers Care Admitting Office Escort Name Role Phone NILSA KOHLI Unavailable Unavailable ZEE ACOSTA Unavailable Unavailable Problems This patient has no known problems. Allergies, Adverse Reactions, Alerts This patient has no known allergies or adverse reactions. Medications This patient has no known medications. Results Test Description Test Time Test Comments Text Results Atomic Results Result Comments AFB CULTURE + SMEAR 2018-06-07 10:29:00 CULTURE (BEAKER) (test jivm=4339) No acid-fast bacilli isolated in 42 days AFB SMEAR (BEAKER) (test ofdc=872) No acid fast bacilli seen AFB CULTURE + [id number] 10:29:00* Test Item Value Reference Range Comments CULTURE (BEAKER) (test yvks=1725) No acid-fast bacilli isolated in 42 days AFB SMEAR (BEAKER) (test ciro=584) No acid fast bacilli seen AFB CULTURE + [id number] 10:29:00* Test Item Value Reference Range Comments CULTURE (BEAKER) (test bbih=5109) No acid-fast bacilli isolated in 42 days AFB SMEAR (BEAKER) (test puqt=040) No acid fast bacilli seen FUNGUS CULTURE + [id number] 18:48:00* Test Item Value Reference Range Comments CULTURE (BEAKER) (test dynw=8907) No fungus isolated in 28 days FUNGUS SMEAR (BEAKER) (test uxoq=3496) No hyphal elements seen FUNGUS CULTURE + [id number] 18:48:00* Test Item Value Reference Range Comments CULTURE (BEAKER) (test vjwn=8381) No fungus isolated in 28 days FUNGUS SMEAR (BEAKER) (test piig=8778) No hyphal elements seen FUNGUS CULTURE + [id number] 18:48:00* Test Item Value Reference Range Comments CULTURE (BEAKER) (test zfot=5890) No fungus isolated in 28 days FUNGUS SMEAR (BEAKER) (test bklu=7158) No hyphal elements seen ANAEROBIC [id number] 03:36:00* Test Item Value Reference Range Comments CULTURE (BEAKER) (test nkix=3510) From Broth Only Propionibacterium acnes ANAEROBIC [id number] 07:06:00* Test Item Value Reference Range Comments CULTURE (BEAKER) (test lbuv=5535) No anaerobes isolated ANAEROBIC [id number] 07:06:00* Test Item Value Reference Range Comments CULTURE (BEAKER) (test tofn=7358) No anaerobes isolated SURGICALLY OBTAINED CULTURE + GRAM [id number] 09:44:00* Test Item Value Reference Range Comments CULTURE (BEAKER) (test cmia=6511) No growth GRAM STAIN RESULT (BEAKER) (test jggq=6359) <1+ WBCs GRAM STAIN RESULT (BEAKER) (test jczq=68230) No organisms seen SURGICALLY OBTAINED CULTURE + GRAM [id number] 09:44:00* Test Item Value Reference Range Comments CULTURE (BEAKER) (test qmto=6343) No growth GRAM STAIN RESULT (BEAKER) (test royn=6680) No WBCs GRAM STAIN RESULT (BEAKER) (test ccxp=89441) No organisms seen SURGICALLY OBTAINED CULTURE + GRAM [id number] 09:41:00* Test Item Value Reference Range Comments CULTURE (BEAKER) (test qrhz=4094) No growth GRAM STAIN RESULT (BEAKER) (test qzvv=8727) No WBCs GRAM STAIN RESULT (BEAKER) (test gvfe=88583) No organisms seen [id number] 07:13:00* Test Item Value Reference Range Comments PROTIME (BEAKER) (test duqy=708) 16.1 seconds 11.7-14.7 INR (BEAKER) (test pyvw=776) 1.3 <=5.9 PARTIAL THROMBOPLASTIN TIME (BEAKER) (test dgvc=920) 103.9 seconds 22.5-36.0 RECOMMENDED COUMADIN/WARFARIN INR THERAPY RANGESSTANDARD DOSE: 2.0 - 3.0 Inclu antione: PROPHYLAXIS for venous thrombosis, systemic embolization; TREATMENT for odalis ous thrombosis and/or pulmonary embolus.HIGH RISK: Target INR is 2.5-3.5 for pat ients with mechanical heart valves.[id number] 07:10:00* Test Item Value Reference Range Comments PHOSPHORUS (BEAKER) (test oftn=333) 3.3 mg/dL 2.3-4.7 [id number] 07:10:00* Test Item Value Reference Range Comments MAGNESIUM (BEAKER) (test cdbw=161) 1.9 mg/dL 1.6-2.6 BASIC METABOLIC [id number] 07:10:00* Test Item Value Reference Range Comments SODIUM (BEAKER) (test emgp=222) 140 meq/L 136-145 POTASSIUM (BEAKER) (test oonm=629) 3.6 meq/L 3.5-5.1 CHLORIDE (BEAKER) (test zvye=644) 105 meq/L 98-107 CO2 (BEAKER) (test kbfn=530) 26 meq/L 22-29 BLOOD UREA NITROGEN (BEAKER) (test aqdt=435) 12 mg/dL 7-21 CREATININE (BEAKER) (test care=355) 0.72 mg/dL 0.57-1.25 GLUCOSE RANDOM (BEAKER) (test empd=146) 102 mg/dL 70-105 CALCIUM (BEAKER) (test qdvy=756) 9.7 mg/dL 8.4-10.2 EGFR (BEAKER) (test ohsu=9832) 77 mL/min/1.73 sq m ESTIMATED GFR IS NOT ACCURATE CREATININE CLEARANCE IN PREDICTING GLOMERULAR FILTRATION RATE. ESTIMATED GFR IS NOT APPLICABLE FOR DIALYSIS PATIENTS. CALCIUM, [id number] 07:06:00* Test Item Value Reference Range Comments CALCIUM IONIZED (BEAKER) (test ytxm=155) 1.18 mmol/L 1.12-1.27 PH, BLOOD (BEAKER) (test vhbq=4016) 7.36 CBC W/PLT COUNT & AUTO [id number] 06:46:00* Test Item Value Reference Range Comments WHITE BLOOD CELL COUNT (BEAKER) (test vevv=943) 5.0 K/ L 3.5-10.5 RED BLOOD CELL COUNT (BEAKER) (test vpbf=531) 4.11 M/ L 3.93-5.22 HEMOGLOBIN (BEAKER) (test wzvs=945) 10.6 GM/DL 11.2-15.7 HEMATOCRIT (BEAKER) (test lfoc=805) 33.9 % 34.1-44.9 MEAN CORPUSCULAR VOLUME (BEAKER) (test tmqr=818) 82.5 fL 79.4-94.8 MEAN CORPUSCULAR HEMOGLOBIN (BEAKER) (test wkkt=698) 25.8 pg 25.6-32.2 MEAN CORPUSCULAR HEMOGLOBIN CONC (BEAKER) (test hyds=871) 31.3 GM/DL 32.2-35.5 RED CELL DISTRIBUTION WIDTH (BEAKER) (test bkrm=117) 18.6 % 11.7-14.4 PLATELET COUNT (BEAKER) (test agah=014) 191 K/CU MM 150-450 MEAN PLATELET VOLUME (BEAKER) (test rcoc=777) 10.9 fL 9.4-12.3 NUCLEATED RED BLOOD CELLS (BEAKER) (test dfmq=416) 0 /100 WBC 0-0 NEUTROPHILS RELATIVE PERCENT (BEAKER) (test tgup=958) 60 % LYMPHOCYTES RELATIVE PERCENT (BEAKER) (test wmpe=888) 24 % MONOCYTES RELATIVE PERCENT (BEAKER) (test pvgq=895) 10 % EOSINOPHILS RELATIVE PERCENT (BEAKER) (test etbt=824) 6 % BASOPHILS RELATIVE PERCENT (BEAKER) (test vber=667) 1 % NEUTROPHILS ABSOLUTE COUNT (BEAKER) (test dxxj=887) 2.98 K/ L 1.56-6.13 LYMPHOCYTES ABSOLUTE COUNT (BEAKER) (test pddh=645) 1.17 K/ L 1.18-3.74 MONOCYTES ABSOLUTE COUNT (BEAKER) (test bojm=045) 0.49 K/ L 0.24-0.36 EOSINOPHILS ABSOLUTE COUNT (BEAKER) (test osql=801) 0.29 K/ L 0.04-0.36 BASOPHILS ABSOLUTE COUNT (BEAKER) (test gasi=122) 0.04 K/ L 0.01-0.08 IMMATURE GRANULOCYTES-RELATIVE PERCENT (BEAKER) (test bfds=8106) 0 % 0-1 [id number] 00:27:00* Test Item Value Reference Range Comments PARTIAL THROMBOPLASTIN TIME (BEAKER) (test xqhe=343) 55.8 seconds 22.5-36.0 [id number] 17:29:00* Test Item Value Reference Range Comments PARTIAL THROMBOPLASTIN TIME (BEAKER) (test rnkn=546) 37.5 seconds 22.5-36.0 PROTHROMBIN TIME/[id number] 13:43:00* Test Item Value Reference Range Comments PROTIME (BEAKER) (test rufy=308) 14.9 seconds 11.7-14.7 INR (BEAKER) (test jdwg=391) 1.2 <=5.9 RECOMMENDED COUMADIN/WARFARIN INR THERAPY RANGESSTANDARD DOSE: 2.0 - 3.0 Inclu antione: PROPHYLAXIS for venous thrombosis, systemic embolization; TREATMENT for odalis ous thrombosis and/or pulmonary embolus.HIGH RISK: Target INR is 2.5-3.5 for pat ients with mechanical heart valves.BASIC METABOLIC [id number] 05:51:00* Test Item Value Reference Range Comments SODIUM (BEAKER) (test ubgv=875) 139 meq/L 136-145 POTASSIUM (BEAKER) (test qmfy=327) 3.9 meq/L 3.5-5.1 CHLORIDE (BEAKER) (test bmzh=230) 105 meq/L 98-107 CO2 (BEAKER) (test xbyg=510) 25 meq/L 22-29 BLOOD UREA NITROGEN (BEAKER) (test xclm=799) 11 mg/dL 7-21 CREATININE (BEAKER) (test rwni=893) 0.69 mg/dL 0.57-1.25 GLUCOSE RANDOM (BEAKER) (test ixdi=518) 92 mg/dL 70-105 CALCIUM (BEAKER) (test nojs=519) 9.3 mg/dL 8.4-10.2 EGFR (BEAKER) (test vwze=1146) 81 mL/min/1.73 sq m ESTIMATED GFR IS NOT ACCURATE CREATININE CLEARANCE IN PREDICTING GLOMERULAR FILTRATION RATE. ESTIMATED GFR IS NOT APPLICABLE FOR DIALYSIS PATIENTS. [id number] 05:33:00* Test Item Value Reference Range Comments PARTIAL THROMBOPLASTIN TIME (BEAKER) (test mdyx=348) 35.0 seconds 22.5-36.0 Prior to initiating heparinCBC W/PLT COUNT & AUTO [id number] 05:24:00* Test Item Value Reference Range Comments WHITE BLOOD CELL COUNT (BEAKER) (test uxqs=775) 5.5 K/ L 3.5-10.5 RED BLOOD CELL COUNT (BEAKER) (test zqcs=633) 4.06 M/ L 3.93-5.22 HEMOGLOBIN (BEAKER) (test oedv=519) 10.5 GM/DL 11.2-15.7 HEMATOCRIT (BEAKER) (test ahda=568) 34.2 % 34.1-44.9 MEAN CORPUSCULAR VOLUME (BEAKER) (test vmyf=463) 84.2 fL 79.4-94.8 MEAN CORPUSCULAR HEMOGLOBIN (BEAKER) (test zocj=116) 25.9 pg 25.6-32.2 MEAN CORPUSCULAR HEMOGLOBIN CONC (BEAKER) (test kazp=399) 30.7 GM/DL 32.2-35.5 RED CELL DISTRIBUTION WIDTH (BEAKER) (test ivdx=658) 18.6 % 11.7-14.4 PLATELET COUNT (BEAKER) (test gcsx=345) 172 K/CU MM 150-450 MEAN PLATELET VOLUME (BEAKER) (test juea=638) 9.9 fL 9.4-12.3 NUCLEATED RED BLOOD CELLS (BEAKER) (test zexy=461) 0 /100 WBC 0-0 NEUTROPHILS RELATIVE PERCENT (BEAKER) (test cwbn=347) 68 % LYMPHOCYTES RELATIVE PERCENT (BEAKER) (test bdog=145) 16 % MONOCYTES RELATIVE PERCENT (BEAKER) (test iupr=494) 11 % EOSINOPHILS RELATIVE PERCENT (BEAKER) (test nldl=911) 4 % BASOPHILS RELATIVE PERCENT (BEAKER) (test mvvf=723) 1 % NEUTROPHILS ABSOLUTE COUNT (BEAKER) (test cozg=297) 3.73 K/ L 1.56-6.13 LYMPHOCYTES ABSOLUTE COUNT (BEAKER) (test gikw=823) 0.89 K/ L 1.18-3.74 MONOCYTES ABSOLUTE COUNT (BEAKER) (test kkvy=544) 0.61 K/ L 0.24-0.36 EOSINOPHILS ABSOLUTE COUNT (BEAKER) (test suxg=473) 0.19 K/ L 0.04-0.36 BASOPHILS ABSOLUTE COUNT (BEAKER) (test kxjx=271) 0.05 K/ L 0.01-0.08 IMMATURE GRANULOCYTES-RELATIVE PERCENT (BEAKER) (test icxx=7717) 0 % 0-1 RAD, CHEST, 1 VIEW, NON [id number] 21:20:00Reason for exam:->s/p Micra leadless PPMShould this be performed at the bedside?->YesFINAL REPORT History: Postop leadless pacemaker placement. Comparison: [...] pleural effusion or acute bony abnormality. Signed: Tresa Vargas MDReport Verified Date/Time: 04/19/2018 21:20:09 Reading Location: [address] Reading Room [id number] 02:56:00* Test Item Value Reference Range Comments PARTIAL THROMBOPLASTIN TIME (BEAKER) (test rghb=345) 46.7 seconds 22.5-36.0 CALCIUM, [id number] 02:45:00* Test Item Value Reference Range Comments CALCIUM IONIZED (BEAKER) (test fkch=254) 1.06 mmol/L 1.12-1.27 PH, BLOOD (BEAKER) (test fxze=5115) 7.47 [id number] 02:30:00* Test Item Value Reference Range Comments MAGNESIUM (BEAKER) (test cyxs=602) 2.0 mg/dL 1.6-2.6 Specimen slightly hemolyzed [id number] 02:30:00* Test Item Value Reference Range Comments PHOSPHORUS (BEAKER) (test ymjm=137) 3.7 mg/dL 2.3-4.7 Specimen slightly hemolyzed BASIC METABOLIC [id number] 02:30:00* Test Item Value Reference Range Comments SODIUM (BEAKER) (test qyqm=874) 140 meq/L 136-145 POTASSIUM (BEAKER) (test llnu=554) 3.9 meq/L 3.5-5.1 Specimen slightly hemolyzed CHLORIDE (BEAKER) (test ogkf=100) 108 meq/L 98-107 CO2 (BEAKER) (test ejtd=557) 23 meq/L 22-29 BLOOD UREA NITROGEN (BEAKER) (test vftx=047) 10 mg/dL 7-21 CREATININE (BEAKER) (test phgq=192) 0.69 mg/dL 0.57-1.25 Specimen slightly hemolyzed GLUCOSE RANDOM (BEAKER) (test lqts=940) 95 mg/dL 70-105 CALCIUM (BEAKER) (test lkyu=279) 9.0 mg/dL 8.4-10.2 EGFR (BEAKER) (test zcaq=9939) 81 mL/min/1.73 sq m ESTIMATED GFR IS NOT ACCURATE CREATININE CLEARANCE IN PREDICTING GLOMERULAR FILTRATION RATE. ESTIMATED GFR IS NOT APPLICABLE FOR DIALYSIS PATIENTS. CBC W/PLT COUNT & AUTO [id number] 02:18:00* Test Item Value Reference Range Comments WHITE BLOOD CELL COUNT (BEAKER) (test vuag=851) 5.2 K/ L 3.5-10.5 RED BLOOD CELL COUNT (BEAKER) (test jxws=632) 3.77 M/ L 3.93-5.22 HEMOGLOBIN (BEAKER) (test garj=408) 9.8 GM/DL 11.2-15.7 HEMATOCRIT (BEAKER) (test deri=225) 31.7 % 34.1-44.9 MEAN CORPUSCULAR VOLUME (BEAKER) (test hsmc=984) 84.1 fL 79.4-94.8 MEAN CORPUSCULAR HEMOGLOBIN (BEAKER) (test locx=788) 26.0 pg 25.6-32.2 MEAN CORPUSCULAR HEMOGLOBIN CONC (BEAKER) (test tcnk=191) 30.9 GM/DL 32.2-35.5 RED CELL DISTRIBUTION WIDTH (BEAKER) (test nkqf=629) 18.6 % 11.7-14.4 PLATELET COUNT (BEAKER) (test wwuz=902) 178 K/CU MM 150-450 MEAN PLATELET VOLUME (BEAKER) (test vacv=078) 10.4 fL 9.4-12.3 NUCLEATED RED BLOOD CELLS (BEAKER) (test cpuw=124) 0 /100 WBC 0-0 NEUTROPHILS RELATIVE PERCENT (BEAKER) (test nacq=068) 62 % LYMPHOCYTES RELATIVE PERCENT (BEAKER) (test jyzx=639) 21 % MONOCYTES RELATIVE PERCENT (BEAKER) (test vczw=552) 11 % EOSINOPHILS RELATIVE PERCENT (BEAKER) (test weme=029) 5 % BASOPHILS RELATIVE PERCENT (BEAKER) (test nyzd=775) 1 % NEUTROPHILS ABSOLUTE COUNT (BEAKER) (test ubof=641) 3.25 K/ L 1.56-6.13 LYMPHOCYTES ABSOLUTE COUNT (BEAKER) (test ykyu=838) 1.11 K/ L 1.18-3.74 MONOCYTES ABSOLUTE COUNT (BEAKER) (test xnss=894) 0.58 K/ L 0.24-0.36 EOSINOPHILS ABSOLUTE COUNT (BEAKER) (test atlj=622) 0.24 K/ L 0.04-0.36 BASOPHILS ABSOLUTE COUNT (BEAKER) (test zcpx=094) 0.05 K/ L 0.01-0.08 IMMATURE GRANULOCYTES-RELATIVE PERCENT (BEAKER) (test ksxz=6065) 0 % 0-1 BLOOD [id number] 01:01:00* Test Item Value Reference Range Comments CULTURE (BEAKER) (test fssw=5925) No growth in 5 days BLOOD [id number] 01:01:00* Test Item Value Reference Range Comments CULTURE (BEAKER) (test noth=5113) No growth in 5 days [id number] 19:02:00* Test Item Value Reference Range Comments PARTIAL THROMBOPLASTIN TIME (BEAKER) (test myzi=023) 30.2 seconds 22.5-36.0 Prior to initiating heparinRAD, CHEST, 1 VIEW, NON [id number] 13:46:00Reason for exam:->s/p laser lead extractionShould this be performed at the bedside?-> YesFINAL REPORT Chest, 1 view. History: Status post lead extraction. Comparison: 04/15/2015. FINDINGS/IMPRESSION: Previously visualized pacing device and transvenous leads have been removed. There is mildly increased interstitial opacities present bilaterally which is nonspecific but can be seen in the setting of edema. There is no evidence for large focal consolidation, pneumothorax, or significant pleural effusion. The cardiomediastinal silhouette is stable in appearance. Vascular calcifications are noted within the thoracic aorta. No acute osseous abnormality is identified. Signed: Theron Doran MDReport Verified Date/Time: 04/18/2018 13:46:42 Reading Location: [facility] Consult Reading Room OMYCIN LEVEL, [id number] 02:43:00* Test Item Value Reference Range Comments VANCOMYCIN TROUGH (BEAKER) (test iktb=144) 12.9 ug/mL 10.0-20.0 [id number] 02:35:00* Test Item Value Reference Range Comments PARTIAL THROMBOPLASTIN TIME (BEAKER) (test xuhw=131) 63.7 seconds 22.5-36.0 [id number] 02:35:00* Test Item Value Reference Range Comments PHOSPHORUS (BEAKER) (test lajz=872) 3.8 mg/dL 2.3-4.7 [id number] 02:35:00* Test Item Value Reference Range Comments MAGNESIUM (BEAKER) (test dran=945) 2.0 mg/dL 1.6-2.6 BASIC METABOLIC [id number] 02:35:00* Test Item Value Reference Range Comments SODIUM (BEAKER) (test upja=228) 141 meq/L 136-145 POTASSIUM (BEAKER) (test upwf=773) 4.0 meq/L 3.5-5.1 CHLORIDE (BEAKER) (test nake=188) 108 meq/L 98-107 CO2 (BEAKER) (test davr=821) 23 meq/L 22-29 BLOOD UREA NITROGEN (BEAKER) (test mlsn=150) 10 mg/dL 7-21 CREATININE (BEAKER) (test pfap=824) 0.76 mg/dL 0.57-1.25 GLUCOSE RANDOM (BEAKER) (test qtvq=748) 103 mg/dL 70-105 CALCIUM (BEAKER) (test ombg=454) 9.4 mg/dL 8.4-10.2 EGFR (BEAKER) (test assr=6360) 72 mL/min/1.73 sq m ESTIMATED GFR IS NOT ACCURATE CREATININE CLEARANCE IN PREDICTING GLOMERULAR FILTRATION RATE. ESTIMATED GFR IS NOT APPLICABLE FOR DIALYSIS PATIENTS. PROTHROMBIN [id number] 02:33:00* Test Item Value Reference Range Comments PROTIME (BEAKER) (test iori=392) 14.6 seconds 11.7-14.7 INR (BEAKER) (test qbpv=585) 1.1 <=5.9 RECOMMENDED COUMADIN/WARFARIN INR THERAPY RANGESSTANDARD DOSE: 2.0 - 3.0 Inclu antione: PROPHYLAXIS for venous thrombosis, systemic embolization; TREATMENT for odalis ous thrombosis and/or pulmonary embolus.HIGH RISK: Target INR is 2.5-3.5 for pat ients with mechanical heart valves.CALCIUM, [id number] 02:32:00* Test Item Value Reference Range Comments CALCIUM IONIZED (BEAKER) (test cqgd=451) 1.08 mmol/L 1.12-1.27 PH, BLOOD (BEAKER) (test tevg=6158) 7.46 CBC W/PLT COUNT & AUTO [id number] 02:20:00* Test Item Value Reference Range Comments WHITE BLOOD CELL COUNT (BEAKER) (test xppv=083) 5.3 K/ L 3.5-10.5 RED BLOOD CELL COUNT (BEAKER) (test zohu=349) 4.35 M/ L 3.93-5.22 HEMOGLOBIN (BEAKER) (test dvyi=337) 11.0 GM/DL 11.2-15.7 HEMATOCRIT (BEAKER) (test fezc=804) 36.0 % 34.1-44.9 MEAN CORPUSCULAR VOLUME (BEAKER) (test fgvl=528) 82.8 fL 79.4-94.8 MEAN CORPUSCULAR HEMOGLOBIN (BEAKER) (test bflf=380) 25.3 pg 25.6-32.2 MEAN CORPUSCULAR HEMOGLOBIN CONC (BEAKER) (test tiow=196) 30.6 GM/DL 32.2-35.5 RED CELL DISTRIBUTION WIDTH (BEAKER) (test udmu=639) 18.4 % 11.7-14.4 PLATELET COUNT (BEAKER) (test objx=858) 205 K/CU MM 150-450 MEAN PLATELET VOLUME (BEAKER) (test oglo=953) 9.9 fL 9.4-12.3 NUCLEATED RED BLOOD CELLS (BEAKER) (test krmz=161) 0 /100 WBC 0-0 NEUTROPHILS RELATIVE PERCENT (BEAKER) (test xrgp=564) 49 % LYMPHOCYTES RELATIVE PERCENT (BEAKER) (test xbww=674) 33 % MONOCYTES RELATIVE PERCENT (BEAKER) (test oxnx=840) 10 % EOSINOPHILS RELATIVE PERCENT (BEAKER) (test llbm=609) 7 % BASOPHILS RELATIVE PERCENT (BEAKER) (test exai=282) 1 % NEUTROPHILS ABSOLUTE COUNT (BEAKER) (test yxdy=295) 2.59 K/ L 1.56-6.13 LYMPHOCYTES ABSOLUTE COUNT (BEAKER) (test gfch=742) 1.77 K/ L 1.18-3.74 MONOCYTES ABSOLUTE COUNT (BEAKER) (test ifln=720) 0.51 K/ L 0.24-0.36 EOSINOPHILS ABSOLUTE COUNT (BEAKER) (test fkwt=647) 0.39 K/ L 0.04-0.36 BASOPHILS ABSOLUTE COUNT (BEAKER) (test sngy=958) 0.06 K/ L 0.01-0.08 IMMATURE GRANULOCYTES-RELATIVE PERCENT (BEAKER) (test jkqb=6891) 0 % 0-1 [id number] 20:32:00* Test Item Value Reference Range Comments PARTIAL THROMBOPLASTIN TIME (BEAKER) (test ldwz=750) 39.9 seconds 22.5-36.0 [id number] 13:02:00* Test Item Value Reference Range Comments PARTIAL THROMBOPLASTIN TIME (BEAKER) (test jadv=101) 31.6 seconds 22.5-36.0 Prior to initiating heparinCALCIUM, [id number] 01:41:00* Test Item Value Reference Range Comments CALCIUM IONIZED (BEAKER) (test rarm=941) 1.12 mmol/L 1.12-1.27 PH, BLOOD (BEAKER) (test fvgv=4608) 7.42 [id number] 01:36:00* Test Item Value Reference Range Comments PARTIAL THROMBOPLASTIN TIME (BEAKER) (test ooaw=769) 67.4 seconds 22.5-36.0 VANCOMYCIN LEVEL, [id number] 01:28:00* Test Item Value Reference Range Comments VANCOMYCIN TROUGH (BEAKER) (test kbsz=446) 7.4 ug/mL 10.0-20.0 Draw immediately prior to next vancomycin dose.[id number] 01:27:00* Test Item Value Reference Range Comments PHOSPHORUS (BEAKER) (test uryn=458) 4.0 mg/dL 2.3-4.7 [id number] 01:27:00* Test Item Value Reference Range Comments MAGNESIUM (BEAKER) (test okls=183) 1.9 mg/dL 1.6-2.6 BASIC METABOLIC [id number] 01:27:00* Test Item Value Reference Range Comments SODIUM (BEAKER) (test arfz=538) 140 meq/L 136-145 POTASSIUM (BEAKER) (test pzst=086) 4.0 meq/L 3.5-5.1 CHLORIDE (BEAKER) (test inbj=999) 108 meq/L 98-107 CO2 (BEAKER) (test yzpg=606) 26 meq/L 22-29 BLOOD UREA NITROGEN (BEAKER) (test ezep=073) 14 mg/dL 7-21 CREATININE (BEAKER) (test gjkh=146) 0.75 mg/dL 0.57-1.25 GLUCOSE RANDOM (BEAKER) (test jrrw=540) 93 mg/dL 70-105 CALCIUM (BEAKER) (test hmsr=853) 9.0 mg/dL 8.4-10.2 EGFR (BEAKER) (test gqwv=4349) 73 mL/min/1.73 sq m ESTIMATED GFR IS NOT ACCURATE CREATININE CLEARANCE IN PREDICTING GLOMERULAR FILTRATION RATE. ESTIMATED GFR IS NOT APPLICABLE FOR DIALYSIS PATIENTS. CBC W/PLT COUNT & AUTO [id number] 01:15:00* Test Item Value Reference Range Comments WHITE BLOOD CELL COUNT (BEAKER) (test vhzs=864) 4.0 K/ L 3.5-10.5 RED BLOOD CELL COUNT (BEAKER) (test mkmw=323) 3.73 M/ L 3.93-5.22 HEMOGLOBIN (BEAKER) (test zjfb=948) 9.5 GM/DL 11.2-15.7 HEMATOCRIT (BEAKER) (test ueai=798) 30.9 % 34.1-44.9 MEAN CORPUSCULAR VOLUME (BEAKER) (test jqwn=148) 82.8 fL 79.4-94.8 MEAN CORPUSCULAR HEMOGLOBIN (BEAKER) (test qgog=383) 25.5 pg 25.6-32.2 MEAN CORPUSCULAR HEMOGLOBIN CONC (BEAKER) (test vwhg=115) 30.7 GM/DL 32.2-35.5 RED CELL DISTRIBUTION WIDTH (BEAKER) (test ctsz=461) 18.0 % 11.7-14.4 PLATELET COUNT (BEAKER) (test emeb=439) 185 K/CU MM 150-450 MEAN PLATELET VOLUME (BEAKER) (test yreb=135) 9.9 fL 9.4-12.3 NUCLEATED RED BLOOD CELLS (BEAKER) (test jfxr=300) 0 /100 WBC 0-0 NEUTROPHILS RELATIVE PERCENT (BEAKER) (test cebj=387) 51 % LYMPHOCYTES RELATIVE PERCENT (BEAKER) (test hmdb=036) 30 % MONOCYTES RELATIVE PERCENT (BEAKER) (test lubi=192) 12 % EOSINOPHILS RELATIVE PERCENT (BEAKER) (test dpuz=104) 6 % BASOPHILS RELATIVE PERCENT (BEAKER) (test qpes=910) 2 % NEUTROPHILS ABSOLUTE COUNT (BEAKER) (test hcbw=225) 2.04 K/ L 1.56-6.13 LYMPHOCYTES ABSOLUTE COUNT (BEAKER) (test afbu=023) 1.18 K/ L 1.18-3.74 MONOCYTES ABSOLUTE COUNT (BEAKER) (test uvme=320) 0.46 K/ L 0.24-0.36 EOSINOPHILS ABSOLUTE COUNT (BEAKER) (test vvvq=495) 0.23 K/ L 0.04-0.36 BASOPHILS ABSOLUTE COUNT (BEAKER) (test rffn=358) 0.06 K/ L 0.01-0.08 IMMATURE GRANULOCYTES-RELATIVE PERCENT (BEAKER) (test fqju=9501) 1 % 0-1 BASIC METABOLIC [id number] 01:45:00* Test Item Value Reference Range Comments SODIUM (BEAKER) (test zbnx=722) 139 meq/L 136-145 POTASSIUM (BEAKER) (test suju=560) 4.1 meq/L 3.5-5.1 CHLORIDE (BEAKER) (test hlpa=493) 107 meq/L 98-107 CO2 (BEAKER) (test tklq=045) 27 meq/L 22-29 BLOOD UREA NITROGEN (BEAKER) (test fgkr=347) 14 mg/dL 7-21 CREATININE (BEAKER) (test zivn=488) 0.78 mg/dL 0.57-1.25 GLUCOSE RANDOM (BEAKER) (test ylrg=800) 101 mg/dL 70-105 CALCIUM (BEAKER) (test whla=259) 9.1 mg/dL 8.4-10.2 EGFR (BEAKER) (test glcn=3731) 70 mL/min/1.73 sq m ESTIMATED GFR IS NOT ACCURATE CREATININE CLEARANCE IN PREDICTING GLOMERULAR FILTRATION RATE. ESTIMATED GFR IS NOT APPLICABLE FOR DIALYSIS PATIENTS. [id number] 01:37:00* Test Item Value Reference Range Comments PARTIAL THROMBOPLASTIN TIME (BEAKER) (test ezfq=528) 73.6 seconds 22.5-36.0 PROTHROMBIN [id number] 01:35:00* Test Item Value Reference Range Comments PROTIME (BEAKER) (test euoz=470) 21.2 seconds 11.7-14.7 INR (BEAKER) (test hhws=908) 1.8 <=5.9 RECOMMENDED COUMADIN/WARFARIN INR THERAPY RANGESSTANDARD DOSE: 2.0 - 3.0 Inclu antione: PROPHYLAXIS for venous thrombosis, systemic embolization; TREATMENT for odalis ous thrombosis and/or pulmonary embolus.HIGH RISK: Target INR is 2.5-3.5 for pat ients with mechanical heart valves.CBC W/PLT COUNT & AUTO [id number] 01:31:00* Test Item Value Reference Range Comments WHITE BLOOD CELL COUNT (BEAKER) (test mllx=215) 3.9 K/ L 3.5-10.5 RED BLOOD CELL COUNT (BEAKER) (test kans=516) 3.78 M/ L 3.93-5.22 HEMOGLOBIN (BEAKER) (test gcao=006) 9.8 GM/DL 11.2-15.7 HEMATOCRIT (BEAKER) (test lsqr=016) 31.0 % 34.1-44.9 MEAN CORPUSCULAR VOLUME (BEAKER) (test rnlk=819) 82.0 fL 79.4-94.8 MEAN CORPUSCULAR HEMOGLOBIN (BEAKER) (test cxxy=213) 25.9 pg 25.6-32.2 MEAN CORPUSCULAR HEMOGLOBIN CONC (BEAKER) (test kqyn=146) 31.6 GM/DL 32.2-35.5 RED CELL DISTRIBUTION WIDTH (BEAKER) (test mzco=860) 18.0 % 11.7-14.4 PLATELET COUNT (BEAKER) (test mmif=056) 195 K/CU MM 150-450 MEAN PLATELET VOLUME (BEAKER) (test vlpc=833) 10.0 fL 9.4-12.3 NUCLEATED RED BLOOD CELLS (BEAKER) (test qcqe=753) 0 /100 WBC 0-0 NEUTROPHILS RELATIVE PERCENT (BEAKER) (test bvnt=015) 46 % LYMPHOCYTES RELATIVE PERCENT (BEAKER) (test mgjm=150) 35 % MONOCYTES RELATIVE PERCENT (BEAKER) (test hkwe=201) 11 % EOSINOPHILS RELATIVE PERCENT (BEAKER) (test aedj=284) 6 % BASOPHILS RELATIVE PERCENT (BEAKER) (test vusx=640) 1 % NEUTROPHILS ABSOLUTE COUNT (BEAKER) (test czve=648) 1.80 K/ L 1.56-6.13 LYMPHOCYTES ABSOLUTE COUNT (BEAKER) (test wjde=230) 1.37 K/ L 1.18-3.74 MONOCYTES ABSOLUTE COUNT (BEAKER) (test fjft=390) 0.42 K/ L 0.24-0.36 EOSINOPHILS ABSOLUTE COUNT (BEAKER) (test hzdt=082) 0.24 K/ L 0.04-0.36 BASOPHILS ABSOLUTE COUNT (BEAKER) (test bgbg=699) 0.04 K/ L 0.01-0.08 IMMATURE GRANULOCYTES-RELATIVE PERCENT (BEAKER) (test bwqw=4435) 0 % 0-1 [id number] 18:31:00* Test Item Value Reference Range Comments PARTIAL THROMBOPLASTIN TIME (BEAKER) (test qeqf=551) 67.8 seconds 22.5-36.0 [id number] 11:50:00* Test Item Value Reference Range Comments PARTIAL THROMBOPLASTIN TIME (BEAKER) (test hiek=977) 55.8 seconds 22.5-36.0 [id number] 05:10:00* Test Item Value Reference Range Comments PHOSPHORUS (BEAKER) (test sanu=257) 4.2 mg/dL 2.3-4.7 [id number] 05:10:00* Test Item Value Reference Range Comments MAGNESIUM (BEAKER) (test hcll=083) 2.3 mg/dL 1.6-2.6 BASIC METABOLIC [id number] 05:10:00* Test Item Value Reference Range Comments SODIUM (BEAKER) (test ruhj=958) 141 meq/L 136-145 POTASSIUM (BEAKER) (test wklt=286) 4.1 meq/L 3.5-5.1 CHLORIDE (BEAKER) (test obdb=007) 106 meq/L 98-107 CO2 (BEAKER) (test guha=119) 27 meq/L 22-29 BLOOD UREA NITROGEN (BEAKER) (test viuq=636) 13 mg/dL 7-21 CREATININE (BEAKER) (test cqyh=824) 0.84 mg/dL 0.57-1.25 GLUCOSE RANDOM (BEAKER) (test qfhc=201) 89 mg/dL 70-105 CALCIUM (BEAKER) (test znyw=932) 9.1 mg/dL 8.4-10.2 EGFR (BEAKER) (test meog=6899) 64 mL/min/1.73 sq m ESTIMATED GFR IS NOT ACCURATE CREATININE CLEARANCE IN PREDICTING GLOMERULAR FILTRATION RATE. ESTIMATED GFR IS NOT APPLICABLE FOR DIALYSIS PATIENTS. CALCIUM, [id number] 04:27:00* Test Item Value Reference Range Comments CALCIUM IONIZED (BEAKER) (test khfo=874) 1.02 mmol/L 1.12-1.27 PH, BLOOD (BEAKER) (test aaxn=7894) 7.43 CBC W/PLT COUNT & AUTO [id number] 04:11:00* Test Item Value Reference Range Comments WHITE BLOOD CELL COUNT (BEAKER) (test epiz=446) 4.1 K/ L 3.5-10.5 RED BLOOD CELL COUNT (BEAKER) (test fsay=508) 4.31 M/ L 3.93-5.22 HEMOGLOBIN (BEAKER) (test usqy=652) 11.0 GM/DL 11.2-15.7 HEMATOCRIT (BEAKER) (test ubdy=852) 35.8 % 34.1-44.9 MEAN CORPUSCULAR VOLUME (BEAKER) (test ffhd=927) 83.1 fL 79.4-94.8 MEAN CORPUSCULAR HEMOGLOBIN (BEAKER) (test idoy=546) 25.5 pg 25.6-32.2 MEAN CORPUSCULAR HEMOGLOBIN CONC (BEAKER) (test lbng=765) 30.7 GM/DL 32.2-35.5 RED CELL DISTRIBUTION WIDTH (BEAKER) (test yktg=490) 17.8 % 11.7-14.4 PLATELET COUNT (BEAKER) (test mdaz=356) 222 K/CU MM 150-450 MEAN PLATELET VOLUME (BEAKER) (test aorh=452) 10.1 fL 9.4-12.3 NUCLEATED RED BLOOD CELLS (BEAKER) (test xtnf=923) 0 /100 WBC 0-0 NEUTROPHILS RELATIVE PERCENT (BEAKER) (test zntm=467) 48 % LYMPHOCYTES RELATIVE PERCENT (BEAKER) (test rjgx=843) 34 % MONOCYTES RELATIVE PERCENT (BEAKER) (test rhcu=116) 12 % EOSINOPHILS RELATIVE PERCENT (BEAKER) (test pecb=475) 5 % BASOPHILS RELATIVE PERCENT (BEAKER) (test xlws=388) 2 % NEUTROPHILS ABSOLUTE COUNT (BEAKER) (test wcal=565) 1.97 K/ L 1.56-6.13 LYMPHOCYTES ABSOLUTE COUNT (BEAKER) (test xxrc=388) 1.38 K/ L 1.18-3.74 MONOCYTES ABSOLUTE COUNT (BEAKER) (test frno=230) 0.48 K/ L 0.24-0.36 EOSINOPHILS ABSOLUTE COUNT (BEAKER) (test iwpa=925) 0.21 K/ L 0.04-0.36 BASOPHILS ABSOLUTE COUNT (BEAKER) (test yhlf=524) 0.06 K/ L 0.01-0.08 IMMATURE GRANULOCYTES-RELATIVE PERCENT (BEAKER) (test atll=0163) 0 % 0-1 PROTHROMBIN TIME/[id number] 04:09:00* Test Item Value Reference Range Comments PROTIME (BEAKER) (test larx=559) 21.7 seconds 11.7-14.7 INR (BEAKER) (test xtly=152) 1.9 <=5.9 RECOMMENDED COUMADIN/WARFARIN INR THERAPY RANGESSTANDARD DOSE: 2.0 - 3.0 Inclu antione: PROPHYLAXIS for venous thrombosis, systemic embolization; TREATMENT for odalis ous thrombosis and/or pulmonary embolus.HIGH RISK: Target INR is 2.5-3.5 for pat ients with mechanical heart valves.[id number] 04:09:00* Test Item Value Reference Range Comments PARTIAL THROMBOPLASTIN TIME (BEAKER) (test tgty=691) 42.3 seconds 22.5-36.0 VANCOMYCIN LEVEL, [id number] 01:24:00* Test Item Value Reference Range Comments VANCOMYCIN TROUGH (BEAKER) (test tgoy=458) 4.6 ug/mL 10.0-20.0 [id number] 00:22:00* Test Item Value Reference Range Comments PARTIAL THROMBOPLASTIN TIME (BEAKER) (test vrxs=132) 145.4 seconds 22.5-36.0 [id number] 16:29:00* Test Item Value Reference Range Comments PARTIAL THROMBOPLASTIN TIME (BEAKER) (test cvhk=883) 59.8 seconds 22.5-36.0 [id number] 09:44:00* Test Item Value Reference Range Comments PARTIAL THROMBOPLASTIN TIME (BEAKER) (test lgxd=973) 42.5 seconds 22.5-36.0 Prior to initiating [id number] 07:19:00* Test Item Value Reference Range Comments PHOSPHORUS (BEAKER) (test ctlw=076) 3.5 mg/dL 2.3-4.7 [id number] 07:19:00* Test Item Value Reference Range Comments MAGNESIUM (BEAKER) (test mbel=685) 2.3 mg/dL 1.6-2.6 BASIC METABOLIC [id number] 07:19:00* Test Item Value Reference Range Comments SODIUM (BEAKER) (test jors=691) 138 meq/L 136-145 POTASSIUM (BEAKER) (test nznp=222) 4.0 meq/L 3.5-5.1 CHLORIDE (BEAKER) (test wipn=705) 107 meq/L 98-107 CO2 (BEAKER) (test yqqc=637) 24 meq/L 22-29 BLOOD UREA NITROGEN (BEAKER) (test usde=288) 13 mg/dL 7-21 CREATININE (BEAKER) (test thgk=224) 0.78 mg/dL 0.57-1.25 GLUCOSE RANDOM (BEAKER) (test koiv=907) 79 mg/dL 70-105 CALCIUM (BEAKER) (test xlos=657) 9.2 mg/dL 8.4-10.2 EGFR (BEAKER) (test ihen=8504) 70 mL/min/1.73 sq m ESTIMATED GFR IS NOT ACCURATE CREATININE CLEARANCE IN PREDICTING GLOMERULAR FILTRATION RATE. ESTIMATED GFR IS NOT APPLICABLE FOR DIALYSIS PATIENTS. TSH/FREE T4 IF [id number] 07:14:00* Test Item Value Reference Range Comments THYROID STIMULATING HORMONE (BEAKER) (test ipdp=611) 1.97 uIU/mL 0.35-4.94 CALCIUM, [id number] 06:29:00* Test Item Value Reference Range Comments CALCIUM IONIZED (BEAKER) (test tupo=402) 1.07 mmol/L 1.12-1.27 PH, BLOOD (BEAKER) (test vbtw=3713) 7.47 PROTHROMBIN TIME/[id number] 06:29:00* Test Item Value Reference Range Comments PROTIME (BEAKER) (test vksz=442) 23.9 seconds 11.7-14.7 INR (BEAKER) (test uuvx=258) 2.1 <=5.9 RECOMMENDED COUMADIN/WARFARIN INR THERAPY RANGESSTANDARD DOSE: 2.0 - 3.0 Inclu antione: PROPHYLAXIS for venous thrombosis, systemic embolization; TREATMENT for odalis ous thrombosis and/or pulmonary embolus.HIGH RISK: Target INR is 2.5-3.5 for pat ients with mechanical heart valves.CBC W/PLT COUNT & AUTO [id number] 06:24:00* Test Item Value Reference Range Comments WHITE BLOOD CELL COUNT (BEAKER) (test cdux=618) 4.2 K/ L 3.5-10.5 RED BLOOD CELL COUNT (BEAKER) (test uvnm=243) 4.22 M/ L 3.93-5.22 HEMOGLOBIN (BEAKER) (test retx=261) 10.7 GM/DL 11.2-15.7 HEMATOCRIT (BEAKER) (test zlyc=648) 35.0 % 34.1-44.9 MEAN CORPUSCULAR VOLUME (BEAKER) (test jxck=734) 82.9 fL 79.4-94.8 MEAN CORPUSCULAR HEMOGLOBIN (BEAKER) (test jxfm=696) 25.4 pg 25.6-32.2 MEAN CORPUSCULAR HEMOGLOBIN CONC (BEAKER) (test liub=735) 30.6 GM/DL 32.2-35.5 RED CELL DISTRIBUTION WIDTH (BEAKER) (test gsne=318) 18.2 % 11.7-14.4 PLATELET COUNT (BEAKER) (test ecdc=301) 220 K/CU MM 150-450 MEAN PLATELET VOLUME (BEAKER) (test tojs=125) 9.8 fL 9.4-12.3 NUCLEATED RED BLOOD CELLS (BEAKER) (test bzhd=940) 0 /100 WBC 0-0 NEUTROPHILS RELATIVE PERCENT (BEAKER) (test upuv=584) 45 % LYMPHOCYTES RELATIVE PERCENT (BEAKER) (test oqoe=108) 37 % MONOCYTES RELATIVE PERCENT (BEAKER) (test qzuw=039) 12 % EOSINOPHILS RELATIVE PERCENT (BEAKER) (test mclu=882) 5 % BASOPHILS RELATIVE PERCENT (BEAKER) (test zlzc=974) 1 % NEUTROPHILS ABSOLUTE COUNT (BEAKER) (test eugy=687) 1.86 K/ L 1.56-6.13 LYMPHOCYTES ABSOLUTE COUNT (BEAKER) (test woyg=170) 1.55 K/ L 1.18-3.74 MONOCYTES ABSOLUTE COUNT (BEAKER) (test ljzu=204) 0.49 K/ L 0.24-0.36 EOSINOPHILS ABSOLUTE COUNT (BEAKER) (test moly=729) 0.20 K/ L 0.04-0.36 BASOPHILS ABSOLUTE COUNT (BEAKER) (test bciw=764) 0.05 K/ L 0.01-0.08 IMMATURE GRANULOCYTES-RELATIVE PERCENT (BEAKER) (test qfrg=4286) 0 % 0-1 BASIC METABOLIC [id number] 19:15:00* Test Item Value Reference Range Comments SODIUM (BEAKER) (test wtxy=966) 139 meq/L 136-145 POTASSIUM (BEAKER) (test zyph=468) 3.7 meq/L 3.5-5.1 CHLORIDE (BEAKER) (test lfbu=085) 107 meq/L 98-107 CO2 (BEAKER) (test pfni=056) 25 meq/L 22-29 BLOOD UREA NITROGEN (BEAKER) (test vvoy=687) 14 mg/dL 7-21 CREATININE (BEAKER) (test ngeo=432) 0.86 mg/dL 0.57-1.25 GLUCOSE RANDOM (BEAKER) (test swcm=841) 151 mg/dL 70-105 CALCIUM (BEAKER) (test lxcm=875) 9.7 mg/dL 8.4-10.2 EGFR (BEAKER) (test rowc=2403) 63 mL/min/1.73 sq m ESTIMATED GFR IS NOT ACCURATE CREATININE CLEARANCE IN PREDICTING GLOMERULAR FILTRATION RATE. ESTIMATED GFR IS NOT APPLICABLE FOR DIALYSIS PATIENTS. PROTHROMBIN TIME/[id number] 19:06:00* Test Item Value Reference Range Comments PROTIME (BEAKER) (test tykq=368) 24.6 seconds 11.7-14.7 INR (BEAKER) (test fsbo=990) 2.2 <=5.9 RECOMMENDED COUMADIN/WARFARIN INR THERAPY RANGESSTANDARD DOSE: 2.0 - 3.0 Inclu antione: PROPHYLAXIS for venous thrombosis, systemic embolization; TREATMENT for odalis ous thrombosis and/or pulmonary embolus.HIGH RISK: Target INR is 2.5-3.5 for pat ients with mechanical heart valves.Prior to initiating [id number] 19:06:00* Test Item Value Reference Range Comments PARTIAL THROMBOPLASTIN TIME (BEAKER) (test qtwh=064) 47.2 seconds 22.5-36.0 Prior to initiating heparinPROTHROMBIN TIME/[id number] 18:14:00* Test Item Value Reference Range Comments PROTIME (BEAKER) (test ggqv=898) 16.9 seconds 9.8-12.0 INR (BEAKER) (test lnum=620) 1.6 <=5.9 RECOMMENDED COUMADIN/WARFARIN INR THERAPY RANGESSTANDARD DOSE: 2.0 - 3.0 Inclu antione: PROPHYLAXIS for venous thrombosis, systemic embolization; TREATMENT for odalis ous thrombosis and/or pulmonary embolus.HIGH RISK: Target INR is 2.5-3.5 for pat ients with mechanical heart valves.
--- OUTSIDE RECORDS SUMMARY | 2018-10-28 23:46 | XMS REPORT | Encounter Summary ---
Author Organization Unknown Address [address] [place] [id number] Phone [phone] Care Team Providers [employer] Sales Executive Name Role Phone Dr. Homa Strong 3 [phone] Aleena Goss MD 3 [phone] Claudiadaniel Yakelin 130 [phone] Reason for Visit Urinary incontinence; Bilateral leg problem; dizziness; lab follow-up Instructions 1. Atrial fibrillation with rapid ventricular response 2. Urinary incontinence oxybutynin chloride 5 mg tablet urogynecology referral - PLEASE CALL PATIENT AND SCHEDULE HER AN APPOINTMENT. PLEASE FAX NOTES TO [phone]. 3. Body mass index 20-24 - normal 4. Vertigo vertigo: care instructions meclizine 12.5 mg tablet 5. Midline cystocele 6. Polymyalgia rheumatica rheumatology referral - PLEASE CALL PATIENT AND SCHEDULE HER AN APPOINTMENT. PLEASE FAX NOTES TO [phone]. 7. Hypertensive disorder 8. Nausea ondansetron 4 mg disintegrating tablet 9. Chronic pain syndrome care management referral 10. Cardiac pacemaker in situ Discussion Note: None recorded. Plan of Care Reminders Provider Appointments None recorded. Lab None recorded. Referral Rheumatology Referral 06/27/2018 Fredy Schmid MD Urogynecology Referral 06/27/2018 Octavia Stewart MD Care Management Referral 06/27/2018 Procedures None recorded. Surgeries None recorded. Imaging None recorded. Medications Name Start Date amlodipine 5 mg tablet Take 1 tablet twice a day by oral route. meclizine 12.5 mg tablet Take 1 tablet 3 times a day by oral route as needed for 10 days. metoprolol succinate ER 50 mg tablet,extended release 24 hr 1 PO BID ondansetron 4 mg disintegrating tablet Take 2 tablets every 12 hours by oral route as needed. oxybutynin chloride 5 mg tablet Take 1 tablet every day by oral route as needed. pantoprazole 40 mg tablet,delayed release Take 1 tablet every day by oral route for 90 days. rosuvastatin 40 mg tablet Take 1 tablet every day by oral route for 30 days. warfarin 2.5 mg tablet TUES, , PT TAKES 5 MG A DAVE, WED, FRI, SAT, SUN PT TAKES 2.5 MG A DAY Medications Administered None recorded. Vitals Height Weight BMI Blood Pressure 4 ft 9 in 95 lbs 20.6 kg/m2 132/72 mm[Hg] Lab Results Date Name Specimen Result Interpretation Description Value Range Status Address 06/23/2018 CBC W/ Auto Diff Wbc 4.40 x10*3/L 3.98-10.04 x10*3/L Final [facility] Laboratory: [address] [place] [address] Rbc 4.51 10*12/L 3.93-5.22 10*12/L Final [facility] Laboratory: [address] Falcon [address] Hemoglobin 11.90 g/dL 11.20-15.70 g/dL Final [facility] Laboratory: [address] sheila [address] Hematocrit 38.1 % 34.1-44.9 % Final [facility] Laboratory: [address] sheila [address] Mcv 84.5 fL 80.0-100.0 fL Final [facility] Laboratory: [address] Falcon [address] Mch 26.4 pg 25.6-32.2 pg Final [facility] Laboratory: [address] Low Mchc 31.2 g/dL 32.2-35.5 g/dL Final [facility] Laboratory: [address] sheila [address] High RDW-SD 55.3 fL 36.4-46.3 fL Final [facility] Laboratory: [address] Platelet Count 224.0 k/uL 182.0-369.0 k/uL Final [facility] Laboratory: [address] sheila [address] Mpv 10.9 fL 7.5-11.5 fL Final [facility] Laboratory: [address] Neut% 63.3 % 34.0-71.1 % Final [facility] Laboratory: [address] Lymph% 25.7 % 19.3-51.7 % Final [facility] Laboratory: [address] [place] Mon% 8.0 % 4.7-12.5 % Final [facility] Laboratory: [address] [place] Eos% 2.3 % 0.7-5.8 % Final [facility] Laboratory: [address]lin, [place] Baso% 0.7 % 0.1-1.2 % Final [facility] Laboratory: [address] [place] Neut# 2.8 x10*3/L 1.6-6.1 x10*3/L Final [facility] Laboratory: [address] [place] Low Lymph# 1.1 x10*3/L 1.2-3.7 x10*3/L Final [facility] Laboratory: [address] [place] Mon# 0.4 x10*3/L 0.2-0.9 x10*3/L Final [facility]: [address] [place] Eos# 0.10 x10*3/L 0.04-0.36 x10*3/L Final [facility] Laboratory: [address] [place] Baso# 0.03 x10*3/L 0.01-0.08 x10*3/L Final [facility]: [address] [facility] 06/23/2018 CMP, Serum or Plasma Alt 15 U/L 0-55 U/L Final [facility]: [address] Ast 23 U/L 5-34 U/L Final [facility] Laboratory: [address] Dee [address] [place] [address] Bun 15.0 mg/dL 9.8-20.1 mg/dL Final [facility] Laboratory: [address] Falcon [address] Alk Phos 76 unit/L 40-150 unit/L Final [facility]: [address] [facility] Glucose 81 mg/dL 70-99 mg/dL Final [facility]: [address] [facility] Albumin 4.1 g/dL 3.5-5.0 g/dL Final [facility] Laboratory: [address] Dee [address] [place] [address] Creatinine 0.82 mg/dL 0.57-1.11 mg/dL Final [facility] Laboratory: [address] Falcon Luiz [place], [place] eGFR Non- >60 mL/min/1.73m2 Final [facility] Laboratory: [address] Devlin, [place] Total Bilirubin 0.6 mg/dL 0.2-1.2 mg/dL Final [facility] Laboratory: [address] Falcon Luiz [place], [place] eGFR - >60 mL/min/1.73m2 Final [facility] Laboratory: [address] Falcon Luiz Estrella, [place] Sodium 140 mEq/L 136-145 mEq/L Final [facility] Laboratory: [address] [place] [address], [place] Potassium 4.2 mEq/L 3.5-5.1 mEq/L Final [facility] Laboratory: [address] Devlin, [place] Chloride 105 mmol/L 98-107 mmol/L Final [facility] Laboratory: [address] Dee [facility], [place] Total Protein 7.2 g/dL 6.4-8.3 g/dL Final [facility] Laboratory: [address] Calcium 9.8 mg/dL 8.6-10.4 mg/dL Final [facility] Laboratory: [address] [place] [address], [place] Co2 23.9 mmol/L 23.0-31.0 mmol/L Final [facility]: [address] [facility] Anion Gap 11 calc Final [facility] Laboratory: [address] Devlin, [place] 06/23/2018 Lipid Panel, Serum Hdl 58 mg/dL 40-60 mg/dL Final [facility] Laboratory: [address] Triglyceride 99 mg/dL 0-149 mg/dL Final [facility]: [address] VLDL Calc. 20 mg/dL Final [facility]: [address] cholesterol/HDL Ratio 2.9 mg/dL Final [facility] Laboratory: [address] [place] [address], [place] non-HDL Cholesterol Calc. 111 mg/dL 0-160 mg/dL Final [facility]: [address] Cholesterol 169 mg/dL 0-199 mg/dL Final [facility]: [address] Falcon Luiz [address] [place] [address] LDL Calc. 91 mg/dL 0-130 mg/dL Final [facility] Laboratory: [address] 06/23/2018 TSH, Serum or Plasma Tsh 1.329 uIU/mL 0.350-4.940 uIU/mL Final [facility] Laboratory: [address] 06/23/2018 HbA1C (Hemoglobin a1C), Blood High A1C W/eag 5.9 % 1.0-5.7 % Final [facility] Laboratory: [address] Average Blood Glucose 123 mg/dL Final [facility] Laboratory: [address] Allergies Code Code System Name Reaction Severity Status Onset 2670 RxNorm Codeine Active 09/16/2012 8120 RxNorm Phenazopyridine Rash Mild Active 09/16/2012 Iodinated Contrast- Oral and Iv Dye Active 12/04/2014 Penicillins Active 12/04/2014 584514 RxNorm Percodan Active 12/04/2014 3649586 RxNorm Tetracycline Active 12/04/2014 7052 RxNorm Morphine Active 03/25/2015 258095 RxNorm Levaquin Active Problems Name Status Onset Date Source Chronic Pain Syndrome Active 03/27/2014 Benign Hypertensive Heart Disease without Congestive Heart Failure Active 03/27/2014 Disorder of Cardiac Function Active 03/27/2014 Midline Cystocele Active 03/27/2014 Osteoporosis Active 03/27/2014 Patient Post Percutaneous Transluminal Coronary Angioplasty Active 03/27/2014 Hyperlipidemia Active 03/28/2014 Anemia Active 04/04/2014 Insomnia Active 04/04/2014 Coronary Arteriosclerosis Active 04/04/2014 Cardiac Insufficiency Following Cardiac Surgery Active 04/04/2014 Impending Cerebral Ischemia Active 04/04/2014 Gastroesophageal Reflux Disease Active 04/04/2014 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 without Perforation or Abscess Active 04/04/2014 Urinary Incontinence Active 04/04/2014 Precordial Pain Active 03/25/2015 Hypertensive Disorder Active 04/02/2015 Retrosternal Pain Active 04/02/2015 Lower Gastrointestinal Hemorrhage Active 06/20/2015 Acute Posthemorrhagic Anemia Active 06/21/2015 Calcific Coronary Arteriosclerosis Active 06/21/2015 Coronary Arteriosclerosis in [place] Artery Active 07/08/2015 Atrial Fibrillation with Rapid Ventricular Response Active 07/08/2015 Low Blood Pressure Active 07/08/2015 Ischemic Colitis Active 07/08/2015 Polymyalgia Rheumatica Active 07/08/2015 Compression Fracture of Lumbar Spine Active 07/08/2015 Physical Deconditioning Active 07/08/2015 Procedures Date Name Performed by 04/20/2018 Pacemaker Information not available Hysterectomy (Total) Information not available Cataract Surgery Information not available Vaccine List Vaccine Type pneumococcal conjugate PCV 13 07/23/20160.5 mL pneumococcal polysaccharide PPV23 08/15/20170.5 mL Social History Smoking Status Never Smoker Past Encounters 06/27/2018 Atrial Fibrillation with Rapid Ventricular Response; Urinary Incontinence; Body Mass Index 20-24 - Normal; Vertigo; Midline Cystocele; Polymyalgia Rheumatica; Hypertensive Disorder; Nausea; Chronic Pain Syndrome; Cardiac Pacemaker in Situ Homa Strong MD: [address] [place] [phone], Ph. History of Present Illness Note:<div>87yo female presents for follow-up visit. Last visit on 10/10/17. Since last visit, pt was hospitalized from 04/13/18 to 04/21/18. 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 Had infected pacemaker removed & new pacemaker placed on 04/19/18. Was treated with IV antibiotics & amp; followed by cardiology & ID in hospital. </div><div>Dismissal meds reviewed:</div><div>Omnicef for next week & toprol XL 50mg qd for next month.</div><div>amlodipine 5mg qd</div><div>vit D 50,000u weekly</div><div> plaquenil 200mg qd</div><div>prednisone 10mg qd</div><div>coumadin 2.5mg qd</div ><div>plavix 75mg qd</div><div>omeprazole 20mg qd</div><div>simvastatin 10mg qhs </div><div>tramadol 50mg q6hrs prn pain</div><div>Recently came into office for fasting labs on 06/23/18 with hgb A1c 5.9%, TSH 1.329, TC 169, HDL 58, LDL 91, TG 99, AST 23, glu 81, Cr 0.82, GFR >60, K 4.2, Ca 9.8, hgb 11.9, wbc 4.4, plt 224K. Labs printed & reviewed with pt.</div><div>Here today for medication refills & updated referrals.</div><div>
</div><div>PMHx:</div> <div>Hx of pacemaker & two stents in heart (2006 & 2015). Followed by Dr. Vences, cardiology. Has been on warfarin since 2006. Also on Plavix.</div>< div>Hx of CVA in 1999.</div><div>Hx of atrial fibrillation. Intermittent. On anticoagulation.</div><div>Hx of hypertension</div><div>Hx of PMR. Requests rheumatology evaluation. On plaquenil & prednisone.</div><div>Hx of chronic backpain from compression fractures. Requests care management.</div><div>Hx of chronic anemia. Hgb about 10.5 in past.</div><div>Hx of urinary incontinence with severe dropped bladder. Has had two surgeries. 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 Will refill oxybutynin & place referral to urogynecology.</div><div>Hx of hyperlipidemia - currently on simvastatin.</div>< div>Hx of osteoporosis - currently on vit D weekly.</div><div>Hx of gastric benign leiomyomas s/p partial gastrectomy in 1999</div><div>Hx of lower GI bleed in 04/2015 due to ischemic colitis.</div> Review of Systems:ROS as noted in the HPI Review of Systems Comprehensive General Adult ROS Reported By: Patient Constitutional: Constitutional: no fever, no night sweats, no significant weight loss, no exercise intolerance ENMT: Ears: no difficulty hearing. Mouth/Throat: no sore throat, no dry mouth, no oral abnormalities Cardiovascular: Cardiovascular: no chest pain, no shortness of breath when walking, no shortness of breath when lying down, no palpitations, no lightheadedness Respiratory: Respiratory: no cough, no wheezing, no shortness of breath, no coughing up blood, no sleep apnea Gastrointestinal: Gastrointestinal: no abdominal pain, no nausea, no vomiting, normal appetite, no diarrhea, no GERD Genitourinary: Genitourinary: ; vaginal dryness Musculoskeletal: Musculoskeletal: muscle aches, muscle weakness, arthralgias/joint pain, back pain; PT HAS 2 HERNIATED DISKS AND PMR. SEE'S ORTHO Neurologic: Neurologic: no loss of consciousness, no numbness, no seizures, no dizziness, no headaches, no tremor Psychiatric: Psych: no depression, no anxiety, no hallucinations, no suicidal thoughts Endocrine: Endocrine: no fatigue Physical Exam Lower Leg, General Adult Exam (Female) Reported By: Patient Constitutional: General Appearance: healthy-appearing, NAD, well-nourished, well- developed; elderly. Ambulation: ambulating normally Gait and Station: Appearance: normal gait Cardiovascular System: Apical Impulse: not displaced. Heart Auscultation: RRR, normal S1, normal S2, no murmurs, no rubs, no gallops. Neck vessels: no carotid bruits. Pulses including femoral / pedal: normal throughout Skin: Inspection and palpation: no rash; pacemaker pocket without erythema Psychiatric: Mood and Affect: active and alert, anxious Eyes: Lids and Conjunctivae: non-injected. Pupils: PERRLA. EOM: EOMI. Sclerae: non-icteric ENMT: Hearing: no hearing loss. Oropharynx: moist mucous membranes Neck: Neck: supple, trachea midline, no masses, FROM. Lymph Nodes: no cervical LAD, no supraclavicular LAD, no axillary LAD, no inguinal LAD. Thyroid: no enlargement, non-tender, no nodules Lungs: Respiratory effort: no dyspnea. Percussion: no dullness, flatness, or hyperresonance. Auscultation: breath sounds normal, good air movement, CTA except as noted, no wheezing, no rales/crackles, no rhonchi Abdomen: Bowel Sounds: normal. Inspection and Palpation: soft Musculoskeletal:: Joints, Bones, and Muscles: normal movement of all extremities. Extremities: no edema
[2018-10-29] MEDS ORDERED: DIPHENHYDRAMINE HCL 25 MG CAP ONE (00:13)
[2018-10-29] MEDS: DIPHENHYDRAMINE HCL 25 MG CAP PO STA (00:15)
== END 2018-10-29 00:30 | disposition home or self-care (01) ==
LOC: FSED 23:42
DX: L50.9 Urticaria, unspecified (principal); I10 Essential (primary) hypertension; E78.5 Hyperlipidemia, unspecified; K21.9 Gastro-esophageal reflux disease without esophagitis; I48.91 Unspecified atrial fibrillation; Z95.5 Presence of coronary angioplasty implant and graft
CPT/HCPCS: 99283

== ENCOUNTER 2019-10-15 14:12 | Emergency (ER) | payer MEDICARE ==
[~2019-10-15] VITALS: Ht 144.8 cm; Wt 43.1 kg
--- OUTSIDE RECORDS SUMMARY | 2019-10-15 14:39 | XMS REPORT | Continuity of Care Document ---
Author Author [facility] Organization [facility] Address [address] [place] [address] Phone Unavailable Care Team Providers Care Application Developer Name Role Phone NONSTAFF PCP Unavailable NILSA KOHLI Attphys Unavailable ZEE ACOSTA Attphys Unavailable NILSA KOHLI Admphys Unavailable Payers Payer Name Policy Type Policy Number Effective Date Expiration Date Alaina young Aarp Medicare Complete [id number] 2018 00:00:00 [facility] Problems Condition Name Condition Details Condition Category Status Onset Date Resolution Date Last Treatment Date Treating Clinician Comments Source Infected pacemaker Infected pacemaker Disease Active 2018-04-14 00:00:0 0 [facility] Hyperlipidemia Hyperlipidemia Disease Active 2018-04-13 00:00:00 [facility] Pacemaker infection Pacemaker infection Disease Active 2018-04-13 00:00 :00 [facility] Paroxysmal atrial fibrillation Paroxysmal atrial fibrillation Disea se Active 2018-04-13 00:00:00 [facility] PMR (polymyalgia rheumatica) PMR (polymyalgia rheumatica) Disease Active 2018-04-13 00:00:00 [facility] Coronary arteriosclerosis in [place] artery Coronary Ar teriosclerosis in [place] Artery Problem Active 2015-07-08 00:00:00 [facility] Atrial fibrillation with RVR Atrial fibrillation with RVR Disease Active 2015-07-08 00:00:00 [facility] Hypotension Hypotension Disease Active 2015-07-08 00:00:00 [facility] Ischemic colitis Ischemic colitis Disease Active 2015-07-08 00:00:00 [facility] Polymyalgia rheumatica Polymyalgia rheumatica Disease Active 2015-07-08 00:00:00 [facility] Compression fracture of L4 lumbar vertebra Compression fracture of L4 lumbar vertebra Disease Active 2015-07-08 00:00:00 [facility] CAD (coronary artery disease), [place] coronary artery CAD (coronary artery disease), [place] coronary artery Disease Active 2015-07-08 00:00:00 [facility] Physical deconditioning Physical deconditioning Disease Active 2015-07-08 00:00:00 [facility] Coronary atherosclerosis due to calcified coronary les ion of [place] artery Coronary atherosclerosis due to calcified coronary lesion of [place] artery Disease Active 2015-06-21 00:00:00 [facility] Acute blood loss anemia Acute blood loss anemia Disease Active 2015-06-21 00:00:00 [facility] Lower GI bleed Lower GI bleed Disease Active 2015-06-20 00:00:00 [facility] Substernal chest pain Substernal chest pain Disease Active 201 08-13-19 00:00:00 [facility] Hypertension Hypertension Disease Active 2015-04-02 00:00:00 [facility] Precordial pain Precordial pain Disease Active 2015-03-25 00:00:00 [facility] Anemia Anemia Problem Active 2014-04-04 00:00:00 [facility] Insomnia Insomnia Problem Active 2014-04-04 00:00:00 [facility] Coronary arteriosclerosis Coronary Arteriosclerosis Problem Ac tive 2014-04-04 00:00:00 [facility] Cardiac insufficiency following cardiac surgery Cardia c Insufficiency Following Cardiac Surgery Problem Active 2014-04-04 00:00:00 [facility] Impending cerebral ischemia Impending Cerebral Ischemia Problem Active 2014-04-04 00:00:00 [facility] Gastroesophageal reflux disease Gastroesophageal Reflux Disease Pro blem Active 2014-04-04 00:00:00 [facility] 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 ractice Benign hypertensive heart disease without congestive h eart failure Benign Hypertensive Heart Disease without Congestive Heart Failure Problem Active 2014-03-27 00:00:00 [facility] Disorder of cardiac function Disorder of Cardiac Function Problem Active 2014-03-27 00:00:00 [facility] Midline cystocele Midline Cystocele Problem Active 2014-03-27 00:00:00 [facility] Osteoporosis Osteoporosis Problem Active 2014-03-27 00:00:00 [facility] Patient post percutaneous transluminal coronary angiop lasty Patient Post Percutaneous Transluminal Coronary Angioplasty Problem Active 2014-03-27 00:00:00 [facility] Allergies, Adverse Reactions, Alerts Allergy Name Allergy Type Status Severity Reaction(s) Onset Date Inacti ve Date Treating Clinician Comments Source Penicillin Allergy to Substance Active 2018-10-29 00:00:00 [facility] Iodine Allergy to Substance Active 2018-10-29 00:00:00 [facility] Morphine Allergy to Substance Active 2018-10-29 00:00:00 [facility] Codeine Allergy to Substance Active 2018-10-29 00:00:00 [facility] Oxycodone Allergy to Substance Active 2018-10-29 00:00:00 [facility] Acetaminophen Allergy to Substance Active 2018-10-29 00:00: 00 [facility] Tetracycline Allergy to Substance Active 2018-10-29 00:00:0 0 [facility] Phenazopyridine Allergy to Substance Active 2018-10-29 00:0 0:00 [facility] Levofloxacin Allergy to Substance Active 2018-10-29 00:00:0 0 [facility] Morphine Allergy to substance Active 2015-03-25 00:00:00 [facility] Iodine And Iodide Containing Products Propensity to adverse reactio ns Active 2015-03-25 00:00:00 rash [facility] Morphine Propensity to adverse reactions Active 2015-03 00:00:00 nausea [facility] PENICILLINS Allergy to substance Active 2014-12-04 00:00:00 [facility] Percodan Allergy to substance Active 2014-12-04 00:00:00 [facility] Tetracycline Allergy to substance Active 2014-12-04 00:00:0 0 [facility] Codeine Allergy to substance Active 2014-12-04 00:00:00 [facility] IODINATED CONTRAST MEDIA Allergy to substance Active 20 26-11-22 00:00:00 [facility] MORPHINE Allergy to substance Active 2014-12-04 00:00:00 [facility] Phenazopyridine Allergy to substance Active Mild Rash 2012-09-16 00:0 0:00 [facility] Codeine Propensity to adverse reactions Active Naus ea And Vomiting 2012-09-16 00:00:00 [facility] Levofloxacin Propensity to adverse reactions Active Ot her (See Comments) 2012-09-16 00:00:00 unknown [facility] Penicillins Propensity to adverse reactions Active Rash 2012 00:00:00 [facility] Oxycodone Gfs-Ywokfrgco-Him Propensity to adverse reactions Active Nausea And Vomiting 2012-09-16 00:00:00 [facility] Phenazopyridine Propensity to adverse reactions Active Rash 2012-09-16 00:00:00 [facility] Tetracyclines Propensity to adverse reactions Active Rash 2012-09-16 00:00:00 [facility] Levaquin Allergy to substance Active [facility] Bactrim Allergy to substance Active Mild to moderate Rash [facility] Family History Family Member Diagnosis Comments Start Date Stop Date Source Family member Unremarkable [facility] Social History Social Habit Start Date Stop Date Quantity Comments Source Sex Assigned At [facility] Smoking Status Start Date Stop Date Source Never smoker [facility] Medications Ordered Medication Name Filled Medication Name Start Date Stop Da te Current Medication? Ordering Clinician Indication Dosage Frequency Signature (SIG) Comments Components Source traMADol (ULTRAM) 50 mg tablet 2018-04-21 00:00:00 Yes 50mg Take 1 tablet (50 mg total) by mouth every 6 (six) hours as needed for Pain. [facility] clopidogrel (PLAVIX) 75 mg tablet 2016-04-27 17:22:02 Yes 75mg QD Take 75 mg by mouth daily. [facility] hydroxychloroquine (PLAQUENIL) 200 mg tablet 2016-04-27 17:22:02 Yes QD Take by mouth daily. [facility] simvastatin (ZOCOR) 10 MG tablet 2016-04-27 17:22:02 Yes 10mg QD Take 10 mg by mouth nightly. [facility] amLODIPine (NORVASC) 5 MG tablet 2016-04-27 17:22:02 Yes 5mg QD Take 5 mg by mouth daily. [facility] predniSONE (DELTASONE) 5 MG tablet 2015-06-20 11:53:53 Yes 10mg QD Take 10 mg by mouth daily . [facility] ferrous sulfate 325 (65 FE) MG tablet 2015-03-25 22:08:34 Y es 325mg Take 325 mg by mouth daily with breakfast Pt dont take this med anymore. [facility] ergocalciferol (VITAMIN D2) 50,000 unit capsule 2015-03-25 11:47 :35 Yes [id number] Q7D Take 50,000 Units by mouth once a week. [facility] warfarin (COUMADIN) 2.5 MG tablet 2013-11-15 00:00:00 Yes 2.5mg QD Take 2.5 mg by mouth daily. [facility] omeprazole (PRILOSEC) 20 MG capsule 2012-09-16 12:13:38 Yes 20mg QD Take 20 mg by mouth daily. [facility] amlodipine 5 mg tablet Take 1 tablet twice a day by or al route. amlodipine 5 mg tablet Take 1 tablet twice a day by oral route. No amlodipine 5 mg tablet Take 1 tablet twice a day by oral route. [facility] ergocalciferol (vitamin D2) 50,000 unit capsule 22292 units by oral route. ergocalciferol (vitamin D2) 50,000 unit capsule 38542 units by oral route. [place] [id number] ergocalciferol (vitamin D2) 50,000 unit capsule 32435 units by oral route. [facility] ice iron 325 mg (65 mg iron) tablet 325 mg by oral route. iron 325 mg (65 mg iron) tablet 325 mg by oral route. No 325mg iron 325 mg (65 mg iron) tablet 325 mg by oral route. [facility] Pr actice metoprolol succinate ER 50 mg tablet,extended release 24 hr 1 PO BID metoprolol succinate ER 50 mg tablet,extended release 24 hr 1 PO BID No metoprolol succinate ER 50 mg tablet,extended release 24 hr 1 PO BID [facility] oxybutynin chloride 5 mg tablet Take 1 t ablet every day by oral route as needed. oxybutynin chloride 5 mg tablet Take 1 t ablet every day by oral route as needed. No oxybutynin chlor ana maria 5 mg tablet Take 1 tablet every day by oral route as needed. [facility] ice pantoprazole 40 mg tablet,delayed releas e Take 1 tablet every day by oral route for 90 days. pantoprazole 40 mg tablet,delayed releas e Take 1 tablet every day by oral route for 90 days. No pantoprazole 40 mg tablet,delayed release Take 1 tablet every day by oral route for 90 days. [facility] rosuvastatin 40 mg tablet Take 1 tablet every day by o ral route for 30 days. rosuvastatin 40 mg tablet Take 1 tablet every day by oral route for 30 days. No rosuvastatin 4 0 mg tablet Take 1 tablet every day by oral route for 30 days. [facility] Immunizations Ordered Immunization Name Filled Immunization Name Date Status Comments Source influenza, high dose seasonal influenza, high dose seasonal 2018 13:55:00 Completed [facility] pneumococcal polysaccharide PPV23 pneumococcal polysaccharid e PPV23 2017-08-15 14:10:12 Completed [facility] pneumococcal conjugate PCV 13 pneumococcal conjugate PCV 13 2016 12:31:00 Completed [facility] Tdap 2013-11-26 00:00:00 Completed [facility] Vital Signs Vital Name Observation Time Observation Value Comments Source BP Diastolic 2018-12-25 00:00:00 96 mm[Hg] [facility] Height 2018-12-25 00:00:00 57 [in_i] [facility] BMI (Body Mass Index) 2018-12-25 00:00:00 20.3 kg/m2 [facility] BP Systolic 2018-12-25 00:00:00 145 mm[Hg] [facility] Body Weight 2018-12-25 00:00:00 94 [lb_av] [facility] BP Diastolic 2018-06-27 00:00:00 72 mm[Hg] [facility] Height 2018-06-27 00:00:00 57 [in_i] [facility] BMI (Body Mass Index) 2018-06-27 00:00:00 20.6 kg/m2 [facility] BP Systolic 2018-06-27 00:00:00 132 mm[Hg] [facility] Body Weight 2018-06-27 00:00:00 95 [lb_av] [facility] Procedures Procedure Date / Time Performed Performing Clinician Sourc e Pacemaker 2018-04-20 00:00:00 [facility] ly Practice Hysterectomy (Total) [facility] maia Practice Cataract Surgery [facility] Other [facility] ractice Plan of Care Planned Activity Planned Date Details Comments Source Diagnostic Test Pending 2018-12-25 00:00:00 TSH, serum or pl asma [code = TSH, serum or plasma] [facility] Diagnostic Test Pending 2018-12-25 00:00:00 lipid panel, ser um [code = lipid panel, serum] [facility] Diagnostic Test Pending 2018-12-25 00:00:00 CMP, serum or pl asma [code = CMP, serum or plasma] [facility] Diagnostic Test Pending 2018-12-25 00:00:00 CBC w/ auto diff [code = CBC w/ auto diff] [facility] Diagnostic Test Pending 2018-12-25 00:00:00 vitamin D, 25-hy droxy, total, serum [code = vitamin D, 25-hydroxy, total, serum] [facility] Practice Diagnostic Test Pending 2018-12-25 00:00:00 INR, plasma [code = INR , plasma] [facility] Diagnostic Test Pending 2018-12-25 00:00:00 erythrocyte sedi mentation rate by westergren method [code = erythrocyte sedimentation rate by westergren method] [facility] Diagnostic Test Pending 2018-12-25 00:00:00 iron + TIBC + fe rritin, serum [code = iron + TIBC + ferritin, serum] [facility] 2018-12-25 00:00:00 vitamin B12 + fo late, serum or blood [code = vitamin B12 + folate, serum or blood] [facility] Diagnostic Test Pending 2018-12-25 00:00:00 HbA1c (hemoglobi n A1c), blood [code = HbA1c (hemoglobin A1c), blood] [facility] Start Date/Time End Date/Time Encounter Type Admission Type Attendi [facility] Care Department Encounter ID Source 2018-12-25 00:00:00 2018-12-25 00:00:00 Homa Strong MD: [id number] [place] [address], Ph. [facility] [id number] [facility] 2018-10-28 23:42:00 2018-10-29 00:30:00 Departed Emergency Room [facility] [id number] [facility] 2018-06-27 00:00:00 2018-06-27 00:00:00 Homa Strong MD: [id number] [place] [address], Ph. [facility] [id number] [facility] Results Test Description Test Time Test Comments Results Result Comments Source Thyrotropin [Units/volume] in Serum or Plasma 2018-06-23 18: 04:00 Test Item TSH (test code = TSH) 1.329 uIU/mL 0.350-4.940 [facility] - Serum or Plasma 2018-06-23 16:50:00* Test Item Value Reference Range Interpretation Comments ALT (test code = ALT) 15 U/L 0-55 AST (test code = AST) 23 U/L 5-34 BUN (test code = BUN) 15.0 mg/dL 9.8-20.1 alk phos (test code = alk phos) 76 unit/L 40-150 glucose (test code = glucose) 81 mg/dL 70-99 albumin (test code = albumin) 4.1 g/dL 3.5-5.0 creatinine (test code = creatinine) 0.82 mg/dL 0.57-1.11 eGFR non- (test code = eGFR non-) > 60 total bilirubin (test code = total bilirubin) 0.6 mg/dL 0.2-1.2 eGFR - (test code = eGFR - ) >60 sodium (test code = sodium) 140 mEq/L 136-145 potassium (test code = potassium) 4.2 mEq/L 3.5-5.1 chloride (test code = chloride) 105 mmol/L 98-107 total protein (test code = total protein) 7.2 g/dL 6.4-8.3 calcium (test code = calcium) 9.8 mg/dL 8.6-10.4 CO2 (test code = CO2) 23.9 mmol/L 23.0-31.0 anion gap (test code = anion gap) 11 calc [facility] - Serum or [id number] 16:50:00* Test Item Value Reference Range Interpretation Comments HDL (test code = HDL) 58 mg/dL 40-60 triglyceride (test code = triglyceride) 99 mg/dL 0-149 VLDL calc. (test code = VLDL calc.) 20 mg/dL cholesterol/HDL ratio (test code = cholesterol/HDL ratio) 2.9 mg/dL non-HDL cholesterol calc. (test code = non-HDL cholesterol c alc.) 111 mg/dL 0-160 cholesterol (test code = cholesterol) 169 mg/dL 0-199 Cholesterol in LDL [Mass/volume] in Serum or Plasma (t est code = 2089-1) 91 mg/dL 0-130 [facility] Auto Differential panel - [id number] 15:26:00 * Test Item Value Reference Range Interpretation Comments WBC (test code = WBC) 4.40 x10*3/?L 3.98-10.04 RBC (test code = RBC) 4.51 10*12/L 3.93-5.22 hemoglobin (test code = hemoglobin) 11.90 g/dL 11.20-15.70 hematocrit (test code = hematocrit) 38.1 % 34.1-44.9 MCV (test code = MCV) 84.5 fL 80.0-100.0 MCH (test code = MCH) 26.4 pg 25.6-32.2 MCHC (test code = MCHC) 31.2 g/dL 32.2-35.5 L RDW-SD (test code = RDW-SD) 55.3 fL 36.4-46.3 H platelet count (test code = platelet count) 224.0 k/uL 182.0-369. 0 MPV (test code = MPV) 10.9 fL 7.5-11.5 neut% (test code = neut%) 63.3 % 34.0-71.1 lymph% (test code = lymph%) 25.7 % 19.3-51.7 mon% (test code = mon%) 8.0 % 4.7-12.5 eos% (test code = eos%) 2.3 % 0.7-5.8 baso% (test code = baso%) 0.7 % 0.1-1.2 neut# (test code = neut#) 2.8 x10*3/?L 1.6-6.1 lymph# (test code = lymph#) 1.1 x10*3/?L 1.2-3.7 L mon# (test code = mon#) 0.4 x10*3/?L 0.2-0.9 eos# (test code = eos#) 0.10 x10*3/?L 0.04-0.36 baso# (test code = baso#) 0.03 x10*3/?L 0.01-0.08 [facility]/Hemoglobin.total in [id number] 15:21:00* Test Item Value Reference Range Interpretation Comments Hemoglobin A1c/Hemoglobin.total in Blood (test code = 4548-4) 5.9 % 1.0-5.7 H average blood glucose (test code = average blood glucose) 123 mg/dL [facility] + [id number] 10:29:00* Test Item Value Reference Range Interpretation Comments CULTURE (BEAKER) (test code = 1095) No acid-fast bacilli isolate d in 42 days AFB SMEAR (BEAKER) (test code = 994) No acid fast bacilli seen AFB CULTURE + [id number] 10:29:00* Test Item Value Reference Range Interpretation Comments CULTURE (BEAKER) (test code = 1095) No acid-fast bacilli isolate d in 42 days AFB SMEAR (BEAKER) (test code = 994) No acid fast bacilli seen AFB CULTURE + [id number] 10:29:00* Test Item Value Reference Range Interpretation Comments CULTURE (BEAKER) (test code = 1095) No acid-fast bacilli isolate d in 42 days AFB SMEAR (BEAKER) (test code = 994) No acid fast bacilli seen FUNGUS CULTURE + [id number] 18:48:00* Test Item Value Reference Range Interpretation Comments CULTURE (BEAKER) (test code = 1095) No fungus isolated in 28 days FUNGUS SMEAR (BEAKER) (test code = 1406) No hyphal elements seen FUNGUS CULTURE + [id number] 18:48:00* Test Item Value Reference Range Interpretation Comments CULTURE (BEAKER) (test code = 1095) No fungus isolated in 28 days FUNGUS SMEAR (BEAKER) (test code = 1406) No hyphal elements seen FUNGUS CULTURE + [id number] 18:48:00* Test Item Value Reference Range Interpretation Comments CULTURE (BEAKER) (test code = 1095) No fungus isolated in 28 days FUNGUS SMEAR (BEAKER) (test code = 1406) No hyphal elements seen ANAEROBIC [id number] 03:36:00* Test Item Value Reference Range Interpretation Comments CULTURE (BEAKER) (test code = 1095) A From Broth Only Propionibacterium acnes ANAEROBIC [id number] 07:06:00* Test Item Value Reference Range Interpretation Comments CULTURE (BEAKER) (test code = 1095) No anaerobes isolated ANAEROBIC [id number] 07:06:00* Test Item Value Reference Range Interpretation Comments CULTURE (BEAKER) (test code = 1095) No anaerobes isolated SURGICALLY OBTAINED CULTURE + GRAM [id number] 09:44:00* Test Item Value Reference Range Interpretation Comments CULTURE (BEAKER) (test code = 1095) No growth GRAM STAIN RESULT (BEAKER) (test code = 1123) <1+ WBCs GRAM STAIN RESULT (BEAKER) (test code = 53942) No organisms seen SURGICALLY OBTAINED CULTURE + GRAM [id number] 09:44:00* Test Item Value Reference Range Interpretation Comments CULTURE (BEAKER) (test code = 1095) No growth GRAM STAIN RESULT (BEAKER) (test code = 1123) No WBCs GRAM STAIN RESULT (BEAKER) (test code = 08197) No organisms seen SURGICALLY OBTAINED CULTURE + GRAM [id number] 09:41:00* Test Item Value Reference Range Interpretation Comments CULTURE (BEAKER) (test code = 1095) No growth GRAM STAIN RESULT (BEAKER) (test code = 1123) No WBCs GRAM STAIN RESULT (BEAKER) (test code = 50511) No organisms seen [id number] 07:13:00* Test Item Value Reference Range Interpretation Comments PROTIME (BEAKER) (test code = 759) 16.1 seconds 11.7-14.7 H INR (BEAKER) (test code = 370) 1.3 <=5.9 PARTIAL THROMBOPLASTIN TIME (BEAKER) (test code = 760) 103.9 sec onds 22.5-36.0 H RECOMMENDED COUMADIN/WARFARIN INR THERAPY RANGESSTANDARD DOSE: 2.0 - 3.0 Inclu antione: PROPHYLAXIS for venous thrombosis, systemic embolization; TREATMENT for odalis ous thrombosis and/or pulmonary embolus.HIGH RISK: Target INR is 2.5-3.5 for pat ients with mechanical heart valves.[id number] 07:10:00* Test Item Value Reference Range Interpretation Comments PHOSPHORUS (BEAKER) (test code = 604) 3.3 mg/dL 2.3-4.7 [id number] 07:10:00* Test Item Value Reference Range Interpretation Comments MAGNESIUM (BEAKER) (test code = 627) 1.9 mg/dL 1.6-2.6 BASIC METABOLIC [id number] 07:10:00* Test Item Value Reference Range Interpretation Comments SODIUM (BEAKER) (test code = 381) 140 meq/L 136-145 POTASSIUM (BEAKER) (test code = 379) 3.6 meq/L 3.5-5.1 CHLORIDE (BEAKER) (test code = 382) 105 meq/L 98-107 CO2 (BEAKER) (test code = 355) 26 meq/L 22-29 BLOOD UREA NITROGEN (BEAKER) (test code = 354) 12 mg/dL 7-21 CREATININE (BEAKER) (test code = 358) 0.72 mg/dL 0.57-1.25 GLUCOSE RANDOM (BEAKER) (test code = 652) 102 mg/dL 70-105 CALCIUM (BEAKER) (test code = 697) 9.7 mg/dL 8.4-10.2 EGFR (BEAKER) (test code = 1092) 77 mL/min/1.73 sq m ESTIMATED GFR IS NOT ACCURATE CREATININE CLEARANCE IN PREDICTING GLOMERULAR FILTRATION RATE. ESTIMATED GFR IS NOT APPLICABLE FOR DIALYSIS PATIENTS. CALCIUM, [id number] 07:06:00* Test Item Value Reference Range Interpretation Comments CALCIUM IONIZED (BEAKER) (test code = 698) 1.18 mmol/L 1.12-1.27 PH, BLOOD (BEAKER) (test code = 1810) 7.36 CBC W/PLT COUNT & AUTO [id number] 06:46:00* Test Item Value Reference Range Interpretation Comments WHITE BLOOD CELL COUNT (BEAKER) (test code = 775) 5.0 K/ L 3.5- 10.5 RED BLOOD CELL COUNT (BEAKER) (test code = 761) 4.11 M/ L 3.93-5 .22 HEMOGLOBIN (BEAKER) (test code = 410) 10.6 GM/DL 11.2-15.7 L HEMATOCRIT (BEAKER) (test code = 411) 33.9 % 34.1-44.9 L MEAN CORPUSCULAR VOLUME (BEAKER) (test code = 753) 82.5 fL 79. 4-94.8 MEAN CORPUSCULAR HEMOGLOBIN (BEAKER) (test code = 751) 25.8 pg 25.6-32.2 MEAN CORPUSCULAR HEMOGLOBIN CONC (BEAKER) (test code = 752) 31.3 GM/DL 32.2-35.5 L RED CELL DISTRIBUTION WIDTH (BEAKER) (test code = 412) 18.6 % 11.7-14.4 H PLATELET COUNT (BEAKER) (test code = 756) 191 K/CU MM 150-450 MEAN PLATELET VOLUME (BEAKER) (test code = 754) 10.9 fL 9.4-12 .3 NUCLEATED RED BLOOD CELLS (BEAKER) (test code = 413) 0 /100 WBC 0 -0 NEUTROPHILS RELATIVE PERCENT (BEAKER) (test code = 429) 60 % LYMPHOCYTES RELATIVE PERCENT (BEAKER) (test code = 430) 24 % MONOCYTES RELATIVE PERCENT (BEAKER) (test code = 431) 10 % EOSINOPHILS RELATIVE PERCENT (BEAKER) (test code = 432) 6 % BASOPHILS RELATIVE PERCENT (BEAKER) (test code = 437) 1 % NEUTROPHILS ABSOLUTE COUNT (BEAKER) (test code = 670) 2.98 K/ L 1.56-6.13 LYMPHOCYTES ABSOLUTE COUNT (BEAKER) (test code = 414) 1.17 K/ L 1.18-3.74 L MONOCYTES ABSOLUTE COUNT (BEAKER) (test code = 415) 0.49 K/ L 0. 24-0.36 H EOSINOPHILS ABSOLUTE COUNT (BEAKER) (test code = 416) 0.29 K/ L 0.04-0.36 BASOPHILS ABSOLUTE COUNT (BEAKER) (test code = 417) 0.04 K/ L 0. 01-0.08 IMMATURE GRANULOCYTES-RELATIVE PERCENT (BEAKER) (test code = 2801) 0 % 0-1 [id number] 00:27:00* Test Item Value Reference Range Interpretation Comments PARTIAL THROMBOPLASTIN TIME (BEAKER) (test code = 760) 55.8 seconds 22.5-36.0 H [id number] 17:29:00* Test Item Value Reference Range Interpretation Comments PARTIAL THROMBOPLASTIN TIME (BEAKER) (test code = 760) 37.5 seconds 22.5-36.0 H PROTHROMBIN [id number] 13:43:00* Test Item Value Reference Range Interpretation Comments PROTIME (BEAKER) (test code = 759) 14.9 seconds 11.7-14.7 H INR (BEAKER) (test code = 370) 1.2 <=5.9 RECOMMENDED COUMADIN/WARFARIN INR THERAPY RANGESSTANDARD DOSE: 2.0 - 3.0 Inclu antione: PROPHYLAXIS for venous thrombosis, systemic embolization; TREATMENT for odalis ous thrombosis and/or pulmonary embolus.HIGH RISK: Target INR is 2.5-3.5 for pat ients with mechanical heart valves.BASIC METABOLIC [id number] 05:51:00* Test Item Value Reference Range Interpretation Comments SODIUM (BEAKER) (test code = 381) 139 meq/L 136-145 POTASSIUM (BEAKER) (test code = 379) 3.9 meq/L 3.5-5.1 CHLORIDE (BEAKER) (test code = 382) 105 meq/L 98-107 CO2 (BEAKER) (test code = 355) 25 meq/L 22-29 BLOOD UREA NITROGEN (BEAKER) (test code = 354) 11 mg/dL 7-21 CREATININE (BEAKER) (test code = 358) 0.69 mg/dL 0.57-1.25 GLUCOSE RANDOM (BEAKER) (test code = 652) 92 mg/dL 70-105 CALCIUM (BEAKER) (test code = 697) 9.3 mg/dL 8.4-10.2 EGFR (BEAKER) (test code = 1092) 81 mL/min/1.73 sq m ESTIMATED GFR IS NOT ACCURATE CREATININE CLEARANCE IN PREDICTING GLOMERULAR FILTRATION RATE. ESTIMATED GFR IS NOT APPLICABLE FOR DIALYSIS PATIENTS. [id number] 05:33:00* Test Item Value Reference Range Interpretation Comments PARTIAL THROMBOPLASTIN TIME (BEAKER) (test code = 760) 35.0 seconds 22.5-36.0 Prior to initiating heparinCBC W/PLT COUNT & AUTO [id number] 05:24:00* Test Item Value Reference Range Interpretation Comments WHITE BLOOD CELL COUNT (BEAKER) (test code = 775) 5.5 K/ L 3.5- 10.5 RED BLOOD CELL COUNT (BEAKER) (test code = 761) 4.06 M/ L 3.93-5 .22 HEMOGLOBIN (BEAKER) (test code = 410) 10.5 GM/DL 11.2-15.7 L HEMATOCRIT (BEAKER) (test code = 411) 34.2 % 34.1-44.9 MEAN CORPUSCULAR VOLUME (BEAKER) (test code = 753) 84.2 fL 79. 4-94.8 MEAN CORPUSCULAR HEMOGLOBIN (BEAKER) (test code = 751) 25.9 pg 25.6-32.2 MEAN CORPUSCULAR HEMOGLOBIN CONC (BEAKER) (test code = 752) 30.7 GM/DL 32.2-35.5 L RED CELL DISTRIBUTION WIDTH (BEAKER) (test code = 412) 18.6 % 11.7-14.4 H PLATELET COUNT (BEAKER) (test code = 756) 172 K/CU MM 150-450 MEAN PLATELET VOLUME (BEAKER) (test code = 754) 9.9 fL 9.4-12 .3 NUCLEATED RED BLOOD CELLS (BEAKER) (test code = 413) 0 /100 WBC 0 -0 NEUTROPHILS RELATIVE PERCENT (BEAKER) (test code = 429) 68 % LYMPHOCYTES RELATIVE PERCENT (BEAKER) (test code = 430) 16 % MONOCYTES RELATIVE PERCENT (BEAKER) (test code = 431) 11 % EOSINOPHILS RELATIVE PERCENT (BEAKER) (test code = 432) 4 % BASOPHILS RELATIVE PERCENT (BEAKER) (test code = 437) 1 % NEUTROPHILS ABSOLUTE COUNT (BEAKER) (test code = 670) 3.73 K/ L 1.56-6.13 LYMPHOCYTES ABSOLUTE COUNT (BEAKER) (test code = 414) 0.89 K/ L 1.18-3.74 L MONOCYTES ABSOLUTE COUNT (BEAKER) (test code = 415) 0.61 K/ L 0. 24-0.36 H EOSINOPHILS ABSOLUTE COUNT (BEAKER) (test code = 416) 0.19 K/ L 0.04-0.36 BASOPHILS ABSOLUTE COUNT (BEAKER) (test code = 417) 0.05 K/ L 0. 01-0.08 IMMATURE GRANULOCYTES-RELATIVE PERCENT (BEAKER) (test code = 2801) 0 % 0-1 RAD, CHEST, 1 VIEW, NON [id number] 21:20:00Reason for exam:->s/p Micra leadless PPMShould this [...] MDReport Verified Date/Time: 04/19/2018 21:20:09 Reading Location: [address] Reading Room [id number] 02:56:00* Test Item Value Reference Range Interpretation Comments PARTIAL THROMBOPLASTIN TIME (BEAKER) (test code = 760) 46.7 seconds 22.5-36.0 H CALCIUM, [id number] 02:45:00* Test Item Value Reference Range Interpretation Comments CALCIUM IONIZED (BEAKER) (test code = 698) 1.06 mmol/L 1.12-1.27 L PH, BLOOD (BEAKER) (test code = 1810) 7.47 [id number] 02:30:00* Test Item Value Reference Range Interpretation Comments MAGNESIUM (BEAKER) (test code = 627) 2.0 mg/dL 1.6-2.6 Specimen slightly hemolyzed [id number] 02:30:00* Test Item Value Reference Range Interpretation Comments PHOSPHORUS (BEAKER) (test code = 604) 3.7 mg/dL 2.3-4.7 Specimen slightly hemolyzed BASIC METABOLIC [id number] 02:30:00* Test Item Value Reference Range Interpretation Comments SODIUM (BEAKER) (test code = 381) 140 meq/L 136-145 POTASSIUM (BEAKER) (test code = 379) 3.9 meq/L 3.5-5.1 Specimen slightly hemolyzed CHLORIDE (BEAKER) (test code = 382) 108 meq/L 98-107 H CO2 (BEAKER) (test code = 355) 23 meq/L 22-29 BLOOD UREA NITROGEN (BEAKER) (test code = 354) 10 mg/dL 7-21 CREATININE (BEAKER) (test code = 358) 0.69 mg/dL 0.57-1.25 Specimen slightly hemolyzed GLUCOSE RANDOM (BEAKER) (test code = 652) 95 mg/dL 70-105 CALCIUM (BEAKER) (test code = 697) 9.0 mg/dL 8.4-10.2 EGFR (BEAKER) (test code = 1092) 81 mL/min/1.73 sq m ESTIMATED GFR IS NOT ACCURATE CREATININE CLEARANCE IN PREDICTING GLOMERULAR FILTRATION RATE. ESTIMATED GFR IS NOT APPLICABLE FOR DIALYSIS PATIENTS. CBC W/PLT COUNT & AUTO [id number] 02:18:00* Test Item Value Reference Range Interpretation Comments WHITE BLOOD CELL COUNT (BEAKER) (test code = 775) 5.2 K/ L 3.5- 10.5 RED BLOOD CELL COUNT (BEAKER) (test code = 761) 3.77 M/ L 3.93-5 .22 L HEMOGLOBIN (BEAKER) (test code = 410) 9.8 GM/DL 11.2-15.7 L HEMATOCRIT (BEAKER) (test code = 411) 31.7 % 34.1-44.9 L MEAN CORPUSCULAR VOLUME (BEAKER) (test code = 753) 84.1 fL 79. 4-94.8 MEAN CORPUSCULAR HEMOGLOBIN (BEAKER) (test code = 751) 26.0 pg 25.6-32.2 MEAN CORPUSCULAR HEMOGLOBIN CONC (BEAKER) (test code = 752) 30.9 GM/DL 32.2-35.5 L RED CELL DISTRIBUTION WIDTH (BEAKER) (test code = 412) 18.6 % 11.7-14.4 H PLATELET COUNT (BEAKER) (test code = 756) 178 K/CU MM 150-450 MEAN PLATELET VOLUME (BEAKER) (test code = 754) 10.4 fL 9.4-12 .3 NUCLEATED RED BLOOD CELLS (BEAKER) (test code = 413) 0 /100 WBC 0 -0 NEUTROPHILS RELATIVE PERCENT (BEAKER) (test code = 429) 62 % LYMPHOCYTES RELATIVE PERCENT (BEAKER) (test code = 430) 21 % MONOCYTES RELATIVE PERCENT (BEAKER) (test code = 431) 11 % EOSINOPHILS RELATIVE PERCENT (BEAKER) (test code = 432) 5 % BASOPHILS RELATIVE PERCENT (BEAKER) (test code = 437) 1 % NEUTROPHILS ABSOLUTE COUNT (BEAKER) (test code = 670) 3.25 K/ L 1.56-6.13 LYMPHOCYTES ABSOLUTE COUNT (BEAKER) (test code = 414) 1.11 K/ L 1.18-3.74 L MONOCYTES ABSOLUTE COUNT (BEAKER) (test code = 415) 0.58 K/ L 0. 24-0.36 H EOSINOPHILS ABSOLUTE COUNT (BEAKER) (test code = 416) 0.24 K/ L 0.04-0.36 BASOPHILS ABSOLUTE COUNT (BEAKER) (test code = 417) 0.05 K/ L 0. 01-0.08 IMMATURE GRANULOCYTES-RELATIVE PERCENT (BEAKER) (test code = 2801) 0 % 0-1 BLOOD [id number] 01:01:00* Test Item Value Reference Range Interpretation Comments CULTURE (BEAKER) (test code = 1095) No growth in 5 days BLOOD [id number] 01:01:00* Test Item Value Reference Range Interpretation Comments CULTURE (BEAKER) (test code = 1095) No growth in 5 days [id number] 19:02:00* Test Item Value Reference Range Interpretation Comments PARTIAL THROMBOPLASTIN TIME (BEAKER) (test code = 760) 30.2 seconds 22.5-36.0 Prior to initiating heparinRAD, CHEST, 1 VIEW, NON [id number] 13:46:00Reason for exam:->s/p laser lead extractionShould this [...] MDReport Verified Date/Time: 04/18/2018 13:46:42 Reading Location: [address] Consult Reading Room OMYCIN LEVEL, [id number] 02:43:00* Test Item Value Reference Range Interpretation Comments VANCOMYCIN TROUGH (BEAKER) (test code = 522) 12.9 ug/mL 10.0-20.0 [id number] 02:35:00* Test Item Value Reference Range Interpretation Comments PARTIAL THROMBOPLASTIN TIME (BEAKER) (test code = 760) 63.7 seconds 22.5-36.0 H [id number] 02:35:00* Test Item Value Reference Range Interpretation Comments PHOSPHORUS (BEAKER) (test code = 604) 3.8 mg/dL 2.3-4.7 [id number] 02:35:00* Test Item Value Reference Range Interpretation Comments MAGNESIUM (BEAKER) (test code = 627) 2.0 mg/dL 1.6-2.6 BASIC METABOLIC [id number] 02:35:00* Test Item Value Reference Range Interpretation Comments SODIUM (BEAKER) (test code = 381) 141 meq/L 136-145 POTASSIUM (BEAKER) (test code = 379) 4.0 meq/L 3.5-5.1 CHLORIDE (BEAKER) (test code = 382) 108 meq/L 98-107 H CO2 (BEAKER) (test code = 355) 23 meq/L 22-29 BLOOD UREA NITROGEN (BEAKER) (test code = 354) 10 mg/dL 7-21 CREATININE (BEAKER) (test code = 358) 0.76 mg/dL 0.57-1.25 GLUCOSE RANDOM (BEAKER) (test code = 652) 103 mg/dL 70-105 CALCIUM (BEAKER) (test code = 697) 9.4 mg/dL 8.4-10.2 EGFR (BEAKER) (test code = 1092) 72 mL/min/1.73 sq m ESTIMATED GFR IS NOT ACCURATE CREATININE CLEARANCE IN PREDICTING GLOMERULAR FILTRATION RATE. ESTIMATED GFR IS NOT APPLICABLE FOR DIALYSIS PATIENTS. PROTHROMBIN [id number] 02:33:00* Test Item Value Reference Range Interpretation Comments PROTIME (BEAKER) (test code = 759) 14.6 seconds 11.7-14.7 INR (BEAKER) (test code = 370) 1.1 <=5.9 RECOMMENDED COUMADIN/WARFARIN INR THERAPY RANGESSTANDARD DOSE: 2.0 - 3.0 Inclu antione: PROPHYLAXIS for venous thrombosis, systemic embolization; TREATMENT for odalis ous thrombosis and/or pulmonary embolus.HIGH RISK: Target INR is 2.5-3.5 for pat ients with mechanical heart valves.CALCIUM, [id number] 02:32:00* Test Item Value Reference Range Interpretation Comments CALCIUM IONIZED (BEAKER) (test code = 698) 1.08 mmol/L 1.12-1.27 L PH, BLOOD (BEAKER) (test code = 1810) 7.46 CBC W/PLT COUNT & AUTO [id number] 02:20:00* Test Item Value Reference Range Interpretation Comments WHITE BLOOD CELL COUNT (BEAKER) (test code = 775) 5.3 K/ L 3.5- 10.5 RED BLOOD CELL COUNT (BEAKER) (test code = 761) 4.35 M/ L 3.93-5 .22 HEMOGLOBIN (BEAKER) (test code = 410) 11.0 GM/DL 11.2-15.7 L HEMATOCRIT (BEAKER) (test code = 411) 36.0 % 34.1-44.9 MEAN CORPUSCULAR VOLUME (BEAKER) (test code = 753) 82.8 fL 79. 4-94.8 MEAN CORPUSCULAR HEMOGLOBIN (BEAKER) (test code = 751) 25.3 pg 25.6-32.2 L MEAN CORPUSCULAR HEMOGLOBIN CONC (BEAKER) (test code = 752) 30.6 GM/DL 32.2-35.5 L RED CELL DISTRIBUTION WIDTH (BEAKER) (test code = 412) 18.4 % 11.7-14.4 H PLATELET COUNT (BEAKER) (test code = 756) 205 K/CU MM 150-450 MEAN PLATELET VOLUME (BEAKER) (test code = 754) 9.9 fL 9.4-12 .3 NUCLEATED RED BLOOD CELLS (BEAKER) (test code = 413) 0 /100 WBC 0 -0 NEUTROPHILS RELATIVE PERCENT (BEAKER) (test code = 429) 49 % LYMPHOCYTES RELATIVE PERCENT (BEAKER) (test code = 430) 33 % MONOCYTES RELATIVE PERCENT (BEAKER) (test code = 431) 10 % EOSINOPHILS RELATIVE PERCENT (BEAKER) (test code = 432) 7 % BASOPHILS RELATIVE PERCENT (BEAKER) (test code = 437) 1 % NEUTROPHILS ABSOLUTE COUNT (BEAKER) (test code = 670) 2.59 K/ L 1.56-6.13 LYMPHOCYTES ABSOLUTE COUNT (BEAKER) (test code = 414) 1.77 K/ L 1.18-3.74 MONOCYTES ABSOLUTE COUNT (BEAKER) (test code = 415) 0.51 K/ L 0. 24-0.36 H EOSINOPHILS ABSOLUTE COUNT (BEAKER) (test code = 416) 0.39 K/ L 0.04-0.36 H BASOPHILS ABSOLUTE COUNT (BEAKER) (test code = 417) 0.06 K/ L 0. 01-0.08 IMMATURE GRANULOCYTES-RELATIVE PERCENT (BEAKER) (test code = 2801) 0 % 0-1 [id number] 20:32:00* Test Item Value Reference Range Interpretation Comments PARTIAL THROMBOPLASTIN TIME (BEAKER) (test code = 760) 39.9 seconds 22.5-36.0 H [id number] 13:02:00* Test Item Value Reference Range Interpretation Comments PARTIAL THROMBOPLASTIN TIME (BEAKER) (test code = 760) 31.6 seconds 22.5-36.0 Prior to initiating heparinCALCIUM, [id number] 01:41:00* Test Item Value Reference Range Interpretation Comments CALCIUM IONIZED (BEAKER) (test code = 698) 1.12 mmol/L 1.12-1.27 PH, BLOOD (BEAKER) (test code = 1810) 7.42 [id number] 01:36:00* Test Item Value Reference Range Interpretation Comments PARTIAL THROMBOPLASTIN TIME (BEAKER) (test code = 760) 67.4 seconds 22.5-36.0 H VANCOMYCIN LEVEL, [id number] 01:28:00* Test Item Value Reference Range Interpretation Comments VANCOMYCIN TROUGH (BEAKER) (test code = 522) 7.4 ug/mL 10.0-20.0 L Draw immediately prior to next vancomycin dose.[id number] 01:27:00* Test Item Value Reference Range Interpretation Comments PHOSPHORUS (BEAKER) (test code = 604) 4.0 mg/dL 2.3-4.7 [id number] 01:27:00* Test Item Value Reference Range Interpretation Comments MAGNESIUM (BEAKER) (test code = 627) 1.9 mg/dL 1.6-2.6 BASIC METABOLIC [id number] 01:27:00* Test Item Value Reference Range Interpretation Comments SODIUM (BEAKER) (test code = 381) 140 meq/L 136-145 POTASSIUM (BEAKER) (test code = 379) 4.0 meq/L 3.5-5.1 CHLORIDE (BEAKER) (test code = 382) 108 meq/L 98-107 H CO2 (BEAKER) (test code = 355) 26 meq/L 22-29 BLOOD UREA NITROGEN (BEAKER) (test code = 354) 14 mg/dL 7-21 CREATININE (BEAKER) (test code = 358) 0.75 mg/dL 0.57-1.25 GLUCOSE RANDOM (BEAKER) (test code = 652) 93 mg/dL 70-105 CALCIUM (BEAKER) (test code = 697) 9.0 mg/dL 8.4-10.2 EGFR (BEAKER) (test code = 1092) 73 mL/min/1.73 sq m ESTIMATED GFR IS NOT ACCURATE CREATININE CLEARANCE IN PREDICTING GLOMERULAR FILTRATION RATE. ESTIMATED GFR IS NOT APPLICABLE FOR DIALYSIS PATIENTS. CBC W/PLT COUNT & AUTO [id number] 01:15:00* Test Item Value Reference Range Interpretation Comments WHITE BLOOD CELL COUNT (BEAKER) (test code = 775) 4.0 K/ L 3.5- 10.5 RED BLOOD CELL COUNT (BEAKER) (test code = 761) 3.73 M/ L 3.93-5 .22 L HEMOGLOBIN (BEAKER) (test code = 410) 9.5 GM/DL 11.2-15.7 L HEMATOCRIT (BEAKER) (test code = 411) 30.9 % 34.1-44.9 L MEAN CORPUSCULAR VOLUME (BEAKER) (test code = 753) 82.8 fL 79. 4-94.8 MEAN CORPUSCULAR HEMOGLOBIN (BEAKER) (test code = 751) 25.5 pg 25.6-32.2 L MEAN CORPUSCULAR HEMOGLOBIN CONC (BEAKER) (test code = 752) 30.7 GM/DL 32.2-35.5 L RED CELL DISTRIBUTION WIDTH (BEAKER) (test code = 412) 18.0 % 11.7-14.4 H PLATELET COUNT (BEAKER) (test code = 756) 185 K/CU MM 150-450 MEAN PLATELET VOLUME (BEAKER) (test code = 754) 9.9 fL 9.4-12 .3 NUCLEATED RED BLOOD CELLS (BEAKER) (test code = 413) 0 /100 WBC 0 -0 NEUTROPHILS RELATIVE PERCENT (BEAKER) (test code = 429) 51 % LYMPHOCYTES RELATIVE PERCENT (BEAKER) (test code = 430) 30 % MONOCYTES RELATIVE PERCENT (BEAKER) (test code = 431) 12 % EOSINOPHILS RELATIVE PERCENT (BEAKER) (test code = 432) 6 % BASOPHILS RELATIVE PERCENT (BEAKER) (test code = 437) 2 % NEUTROPHILS ABSOLUTE COUNT (BEAKER) (test code = 670) 2.04 K/ L 1.56-6.13 LYMPHOCYTES ABSOLUTE COUNT (BEAKER) (test code = 414) 1.18 K/ L 1.18-3.74 MONOCYTES ABSOLUTE COUNT (BEAKER) (test code = 415) 0.46 K/ L 0. 24-0.36 H EOSINOPHILS ABSOLUTE COUNT (BEAKER) (test code = 416) 0.23 K/ L 0.04-0.36 BASOPHILS ABSOLUTE COUNT (BEAKER) (test code = 417) 0.06 K/ L 0. 01-0.08 IMMATURE GRANULOCYTES-RELATIVE PERCENT (BEAKER) (test code = 2801) 1 % 0-1 BASIC METABOLIC [id number] 01:45:00* Test Item Value Reference Range Interpretation Comments SODIUM (BEAKER) (test code = 381) 139 meq/L 136-145 POTASSIUM (BEAKER) (test code = 379) 4.1 meq/L 3.5-5.1 CHLORIDE (BEAKER) (test code = 382) 107 meq/L 98-107 CO2 (BEAKER) (test code = 355) 27 meq/L 22-29 BLOOD UREA NITROGEN (BEAKER) (test code = 354) 14 mg/dL 7-21 CREATININE (BEAKER) (test code = 358) 0.78 mg/dL 0.57-1.25 GLUCOSE RANDOM (BEAKER) (test code = 652) 101 mg/dL 70-105 CALCIUM (BEAKER) (test code = 697) 9.1 mg/dL 8.4-10.2 EGFR (BEAKER) (test code = 1092) 70 mL/min/1.73 sq m ESTIMATED GFR IS NOT ACCURATE CREATININE CLEARANCE IN PREDICTING GLOMERULAR FILTRATION RATE. ESTIMATED GFR IS NOT APPLICABLE FOR DIALYSIS PATIENTS. [id number] 01:37:00* Test Item Value Reference Range Interpretation Comments PARTIAL THROMBOPLASTIN TIME (BEAKER) (test code = 760) 73.6 seconds 22.5-36.0 H PROTHROMBIN [id number] 01:35:00* Test Item Value Reference Range Interpretation Comments PROTIME (BEAKER) (test code = 759) 21.2 seconds 11.7-14.7 H INR (BEAKER) (test code = 370) 1.8 <=5.9 RECOMMENDED COUMADIN/WARFARIN INR THERAPY RANGESSTANDARD DOSE: 2.0 - 3.0 Inclu antione: PROPHYLAXIS for venous thrombosis, systemic embolization; TREATMENT for odalis ous thrombosis and/or pulmonary embolus.HIGH RISK: Target INR is 2.5-3.5 for pat ients with mechanical heart valves.CBC W/PLT COUNT & AUTO [id number] 01:31:00* Test Item Value Reference Range Interpretation Comments WHITE BLOOD CELL COUNT (BEAKER) (test code = 775) 3.9 K/ L 3.5- 10.5 RED BLOOD CELL COUNT (BEAKER) (test code = 761) 3.78 M/ L 3.93-5 .22 L HEMOGLOBIN (BEAKER) (test code = 410) 9.8 GM/DL 11.2-15.7 L HEMATOCRIT (BEAKER) (test code = 411) 31.0 % 34.1-44.9 L MEAN CORPUSCULAR VOLUME (BEAKER) (test code = 753) 82.0 fL 79. 4-94.8 MEAN CORPUSCULAR HEMOGLOBIN (BEAKER) (test code = 751) 25.9 pg 25.6-32.2 MEAN CORPUSCULAR HEMOGLOBIN CONC (BEAKER) (test code = 752) 31.6 GM/DL 32.2-35.5 L RED CELL DISTRIBUTION WIDTH (BEAKER) (test code = 412) 18.0 % 11.7-14.4 H PLATELET COUNT (BEAKER) (test code = 756) 195 K/CU MM 150-450 MEAN PLATELET VOLUME (BEAKER) (test code = 754) 10.0 fL 9.4-12 .3 NUCLEATED RED BLOOD CELLS (BEAKER) (test code = 413) 0 /100 WBC 0 -0 NEUTROPHILS RELATIVE PERCENT (BEAKER) (test code = 429) 46 % LYMPHOCYTES RELATIVE PERCENT (BEAKER) (test code = 430) 35 % MONOCYTES RELATIVE PERCENT (BEAKER) (test code = 431) 11 % EOSINOPHILS RELATIVE PERCENT (BEAKER) (test code = 432) 6 % BASOPHILS RELATIVE PERCENT (BEAKER) (test code = 437) 1 % NEUTROPHILS ABSOLUTE COUNT (BEAKER) (test code = 670) 1.80 K/ L 1.56-6.13 LYMPHOCYTES ABSOLUTE COUNT (BEAKER) (test code = 414) 1.37 K/ L 1.18-3.74 MONOCYTES ABSOLUTE COUNT (BEAKER) (test code = 415) 0.42 K/ L 0. 24-0.36 H EOSINOPHILS ABSOLUTE COUNT (BEAKER) (test code = 416) 0.24 K/ L 0.04-0.36 BASOPHILS ABSOLUTE COUNT (BEAKER) (test code = 417) 0.04 K/ L 0. 01-0.08 IMMATURE GRANULOCYTES-RELATIVE PERCENT (BEAKER) (test code = 2801) 0 % 0-1 [id number] 18:31:00* Test Item Value Reference Range Interpretation Comments PARTIAL THROMBOPLASTIN TIME (BEAKER) (test code = 760) 67.8 seconds 22.5-36.0 H [id number] 11:50:00* Test Item Value Reference Range Interpretation Comments PARTIAL THROMBOPLASTIN TIME (BEAKER) (test code = 760) 55.8 seconds 22.5-36.0 H [id number] 05:10:00* Test Item Value Reference Range Interpretation Comments PHOSPHORUS (BEAKER) (test code = 604) 4.2 mg/dL 2.3-4.7 [id number] 05:10:00* Test Item Value Reference Range Interpretation Comments MAGNESIUM (BEAKER) (test code = 627) 2.3 mg/dL 1.6-2.6 BASIC METABOLIC [id number] 05:10:00* Test Item Value Reference Range Interpretation Comments SODIUM (BEAKER) (test code = 381) 141 meq/L 136-145 POTASSIUM (BEAKER) (test code = 379) 4.1 meq/L 3.5-5.1 CHLORIDE (BEAKER) (test code = 382) 106 meq/L 98-107 CO2 (BEAKER) (test code = 355) 27 meq/L 22-29 BLOOD UREA NITROGEN (BEAKER) (test code = 354) 13 mg/dL 7-21 CREATININE (BEAKER) (test code = 358) 0.84 mg/dL 0.57-1.25 GLUCOSE RANDOM (BEAKER) (test code = 652) 89 mg/dL 70-105 CALCIUM (BEAKER) (test code = 697) 9.1 mg/dL 8.4-10.2 EGFR (BEAKER) (test code = 1092) 64 mL/min/1.73 sq m ESTIMATED GFR IS NOT ACCURATE CREATININE CLEARANCE IN PREDICTING GLOMERULAR FILTRATION RATE. ESTIMATED GFR IS NOT APPLICABLE FOR DIALYSIS PATIENTS. CALCIUM, [id number] 04:27:00* Test Item Value Reference Range Interpretation Comments CALCIUM IONIZED (BEAKER) (test code = 698) 1.02 mmol/L 1.12-1.27 L PH, BLOOD (BEAKER) (test code = 1810) 7.43 CBC W/PLT COUNT & AUTO [id number] 04:11:00* Test Item Value Reference Range Interpretation Comments WHITE BLOOD CELL COUNT (BEAKER) (test code = 775) 4.1 K/ L 3.5- 10.5 RED BLOOD CELL COUNT (BEAKER) (test code = 761) 4.31 M/ L 3.93-5 .22 HEMOGLOBIN (BEAKER) (test code = 410) 11.0 GM/DL 11.2-15.7 L HEMATOCRIT (BEAKER) (test code = 411) 35.8 % 34.1-44.9 MEAN CORPUSCULAR VOLUME (BEAKER) (test code = 753) 83.1 fL 79. 4-94.8 MEAN CORPUSCULAR HEMOGLOBIN (BEAKER) (test code = 751) 25.5 pg 25.6-32.2 L MEAN CORPUSCULAR HEMOGLOBIN CONC (BEAKER) (test code = 752) 30.7 GM/DL 32.2-35.5 L RED CELL DISTRIBUTION WIDTH (BEAKER) (test code = 412) 17.8 % 11.7-14.4 H PLATELET COUNT (BEAKER) (test code = 756) 222 K/CU MM 150-450 MEAN PLATELET VOLUME (BEAKER) (test code = 754) 10.1 fL 9.4-12 .3 NUCLEATED RED BLOOD CELLS (BEAKER) (test code = 413) 0 /100 WBC 0 -0 NEUTROPHILS RELATIVE PERCENT (BEAKER) (test code = 429) 48 % LYMPHOCYTES RELATIVE PERCENT (BEAKER) (test code = 430) 34 % MONOCYTES RELATIVE PERCENT (BEAKER) (test code = 431) 12 % EOSINOPHILS RELATIVE PERCENT (BEAKER) (test code = 432) 5 % BASOPHILS RELATIVE PERCENT (BEAKER) (test code = 437) 2 % NEUTROPHILS ABSOLUTE COUNT (BEAKER) (test code = 670) 1.97 K/ L 1.56-6.13 LYMPHOCYTES ABSOLUTE COUNT (BEAKER) (test code = 414) 1.38 K/ L 1.18-3.74 MONOCYTES ABSOLUTE COUNT (BEAKER) (test code = 415) 0.48 K/ L 0. 24-0.36 H EOSINOPHILS ABSOLUTE COUNT (BEAKER) (test code = 416) 0.21 K/ L 0.04-0.36 BASOPHILS ABSOLUTE COUNT (BEAKER) (test code = 417) 0.06 K/ L 0. 01-0.08 IMMATURE GRANULOCYTES-RELATIVE PERCENT (BEAKER) (test code = 2801) 0 % 0-1 PROTHROMBIN TIME/[id number] 04:09:00* Test Item Value Reference Range Interpretation Comments PROTIME (BEAKER) (test code = 759) 21.7 seconds 11.7-14.7 H INR (BEAKER) (test code = 370) 1.9 <=5.9 RECOMMENDED COUMADIN/WARFARIN INR THERAPY RANGESSTANDARD DOSE: 2.0 - 3.0 Inclu antione: PROPHYLAXIS for venous thrombosis, systemic embolization; TREATMENT for odalis ous thrombosis and/or pulmonary embolus.HIGH RISK: Target INR is 2.5-3.5 for pat ients with mechanical heart valves.[id number] 04:09:00* Test Item Value Reference Range Interpretation Comments PARTIAL THROMBOPLASTIN TIME (BEAKER) (test code = 760) 42.3 seconds 22.5-36.0 H VANCOMYCIN LEVEL, [id number] 01:24:00* Test Item Value Reference Range Interpretation Comments VANCOMYCIN TROUGH (BEAKER) (test code = 522) 4.6 ug/mL 10.0-20.0 L [id number] 00:22:00* Test Item Value Reference Range Interpretation Comments PARTIAL THROMBOPLASTIN TIME (BEAKER) (test code = 760) 145.4 sec onds 22.5-36.0 H [id number] 16:29:00* Test Item Value Reference Range Interpretation Comments PARTIAL THROMBOPLASTIN TIME (BEAKER) (test code = 760) 59.8 seconds 22.5-36.0 H [id number] 09:44:00* Test Item Value Reference Range Interpretation Comments PARTIAL THROMBOPLASTIN TIME (BEAKER) (test code = 760) 42.5 seconds 22.5-36.0 H Prior to initiating [id number] 07:19:00* Test Item Value Reference Range Interpretation Comments PHOSPHORUS (BEAKER) (test code = 604) 3.5 mg/dL 2.3-4.7 [id number] 07:19:00* Test Item Value Reference Range Interpretation Comments MAGNESIUM (BEAKER) (test code = 627) 2.3 mg/dL 1.6-2.6 BASIC METABOLIC [id number] 07:19:00* Test Item Value Reference Range Interpretation Comments SODIUM (BEAKER) (test code = 381) 138 meq/L 136-145 POTASSIUM (BEAKER) (test code = 379) 4.0 meq/L 3.5-5.1 CHLORIDE (BEAKER) (test code = 382) 107 meq/L 98-107 CO2 (BEAKER) (test code = 355) 24 meq/L 22-29 BLOOD UREA NITROGEN (BEAKER) (test code = 354) 13 mg/dL 7-21 CREATININE (BEAKER) (test code = 358) 0.78 mg/dL 0.57-1.25 GLUCOSE RANDOM (BEAKER) (test code = 652) 79 mg/dL 70-105 CALCIUM (BEAKER) (test code = 697) 9.2 mg/dL 8.4-10.2 EGFR (BEAKER) (test code = 1092) 70 mL/min/1.73 sq m ESTIMATED GFR IS NOT ACCURATE CREATININE CLEARANCE IN PREDICTING GLOMERULAR FILTRATION RATE. ESTIMATED GFR IS NOT APPLICABLE FOR DIALYSIS PATIENTS. TSH/FREE T4 IF [id number] 07:14:00* Test Item Value Reference Range Interpretation Comments THYROID STIMULATING HORMONE (BEAKER) (test code = 772) 1.97 uIU/mL 0.35-4.94 CALCIUM, [id number] 06:29:00* Test Item Value Reference Range Interpretation Comments CALCIUM IONIZED (BEAKER) (test code = 698) 1.07 mmol/L 1.12-1.27 L PH, BLOOD (BEAKER) (test code = 1810) 7.47 PROTHROMBIN [id number] 06:29:00* Test Item Value Reference Range Interpretation Comments PROTIME (BEAKER) (test code = 759) 23.9 seconds 11.7-14.7 H INR (BEAKER) (test code = 370) 2.1 <=5.9 RECOMMENDED COUMADIN/WARFARIN INR THERAPY RANGESSTANDARD DOSE: 2.0 - 3.0 Inclu antione: PROPHYLAXIS for venous thrombosis, systemic embolization; TREATMENT for odalis ous thrombosis and/or pulmonary embolus.HIGH RISK: Target INR is 2.5-3.5 for pat ients with mechanical heart valves.CBC W/PLT COUNT & AUTO [id number] 06:24:00* Test Item Value Reference Range Interpretation Comments WHITE BLOOD CELL COUNT (BEAKER) (test code = 775) 4.2 K/ L 3.5- 10.5 RED BLOOD CELL COUNT (BEAKER) (test code = 761) 4.22 M/ L 3.93-5 .22 HEMOGLOBIN (BEAKER) (test code = 410) 10.7 GM/DL 11.2-15.7 L HEMATOCRIT (BEAKER) (test code = 411) 35.0 % 34.1-44.9 MEAN CORPUSCULAR VOLUME (BEAKER) (test code = 753) 82.9 fL 79. 4-94.8 MEAN CORPUSCULAR HEMOGLOBIN (BEAKER) (test code = 751) 25.4 pg 25.6-32.2 L MEAN CORPUSCULAR HEMOGLOBIN CONC (BEAKER) (test code = 752) 30.6 GM/DL 32.2-35.5 L RED CELL DISTRIBUTION WIDTH (BEAKER) (test code = 412) 18.2 % 11.7-14.4 H PLATELET COUNT (BEAKER) (test code = 756) 220 K/CU MM 150-450 MEAN PLATELET VOLUME (BEAKER) (test code = 754) 9.8 fL 9.4-12 .3 NUCLEATED RED BLOOD CELLS (BEAKER) (test code = 413) 0 /100 WBC 0 -0 NEUTROPHILS RELATIVE PERCENT (BEAKER) (test code = 429) 45 % LYMPHOCYTES RELATIVE PERCENT (BEAKER) (test code = 430) 37 % MONOCYTES RELATIVE PERCENT (BEAKER) (test code = 431) 12 % EOSINOPHILS RELATIVE PERCENT (BEAKER) (test code = 432) 5 % BASOPHILS RELATIVE PERCENT (BEAKER) (test code = 437) 1 % NEUTROPHILS ABSOLUTE COUNT (BEAKER) (test code = 670) 1.86 K/ L 1.56-6.13 LYMPHOCYTES ABSOLUTE COUNT (BEAKER) (test code = 414) 1.55 K/ L 1.18-3.74 MONOCYTES ABSOLUTE COUNT (BEAKER) (test code = 415) 0.49 K/ L 0. 24-0.36 H EOSINOPHILS ABSOLUTE COUNT (BEAKER) (test code = 416) 0.20 K/ L 0.04-0.36 BASOPHILS ABSOLUTE COUNT (BEAKER) (test code = 417) 0.05 K/ L 0. 01-0.08 IMMATURE GRANULOCYTES-RELATIVE PERCENT (BEAKER) (test code = 2801) 0 % 0-1 BASIC METABOLIC [id number] 19:15:00* Test Item Value Reference Range Interpretation Comments SODIUM (BEAKER) (test code = 381) 139 meq/L 136-145 POTASSIUM (BEAKER) (test code = 379) 3.7 meq/L 3.5-5.1 CHLORIDE (BEAKER) (test code = 382) 107 meq/L 98-107 CO2 (BEAKER) (test code = 355) 25 meq/L 22-29 BLOOD UREA NITROGEN (BEAKER) (test code = 354) 14 mg/dL 7-21 CREATININE (BEAKER) (test code = 358) 0.86 mg/dL 0.57-1.25 GLUCOSE RANDOM (BEAKER) (test code = 652) 151 mg/dL 70-105 H CALCIUM (BEAKER) (test code = 697) 9.7 mg/dL 8.4-10.2 EGFR (BEAKER) (test code = 1092) 63 mL/min/1.73 sq m ESTIMATED GFR IS NOT ACCURATE CREATININE CLEARANCE IN PREDICTING GLOMERULAR FILTRATION RATE. ESTIMATED GFR IS NOT APPLICABLE FOR DIALYSIS PATIENTS. PROTHROMBIN TIME/[id number] 19:06:00* Test Item Value Reference Range Interpretation Comments PROTIME (BEAKER) (test code = 759) 24.6 seconds 11.7-14.7 H INR (BEAKER) (test code = 370) 2.2 <=5.9 RECOMMENDED COUMADIN/WARFARIN INR THERAPY RANGESSTANDARD DOSE: 2.0 - 3.0 Inclu antione: PROPHYLAXIS for venous thrombosis, systemic embolization; TREATMENT for odalis ous thrombosis and/or pulmonary embolus.HIGH RISK: Target INR is 2.5-3.5 for pat ients with mechanical heart valves.Prior to initiating [id number] 19:06:00* Test Item Value Reference Range Interpretation Comments PARTIAL THROMBOPLASTIN TIME (BEAKER) (test code = 760) 47.2 seconds 22.5-36.0 H Prior to initiating heparinPROTHROMBIN [id number] 18:14:00* Test Item Value Reference Range Interpretation Comments PROTIME (BEAKER) (test code = 759) 16.9 seconds 9.8-12.0 H INR (BEAKER) (test code = 370) 1.6 <=5.9 RECOMMENDED COUMADIN/WARFARIN INR THERAPY RANGESSTANDARD DOSE: 2.0 - 3.0 Inclu antione: PROPHYLAXIS for venous thrombosis, systemic embolization; TREATMENT for odalis ous thrombosis and/or pulmonary embolus.HIGH RISK: Target INR is 2.5-3.5 for pat ients with mechanical heart valves.
--- OUTSIDE RECORDS SUMMARY | 2019-10-15 14:39 | XMS REPORT | Encounter Summary ---
Author Organization Unknown Address [address] [place] [address] Phone [phone] Care Team Providers Care Glass Mould Cleaner Name Role Phone Dr. Homa Strong 3 [phone] Aleena Goss MD 3 [phone] Zander [facility] 130 [phone] Reason for Visit Atrial fibrillation with rapid ventricul ar response Instructions 1. Atrial fibrillation with rapid ventri cular response cardiology referral TSH, serum or plasma INR, plasma cardiology referral 2. Body mass index 20-24 - normal 3. Normal grief reaction 4. Coronary arteriosclerosis in [place] lipid panel, serum CMP, serum or plasma 5. Anemia CBC w/ auto diff iron + TIBC + ferritin, serum vitamin B12 + folate, serum or blood 6. Hypertensive disorder 7. Influenza vaccination Fluzone High-Dose 2019-20 (PF) 180 mcg /0.5 mL intramuscular syringe 8. Cardiac pacemaker in situ 9. Osteoporosis vitamin D, 25-hydroxy, total, serum rheumatology referral 10. Polymyalgia rheumatica erythrocyte sedimentation rate by west ergren method 11. Lower gastrointestinal hemorrhage 12. Prediabetes HbA1c (hemoglobin A1c), blood 13. Lesion of skin of face dermatology referral 14. Senile purpura Discussion Note: None recorded. Patient educational handouts: No information available. Plan of Care Reminders Provider Appointments None recorded. Lab TSH, Serum or Plasma 12/25/2018 [facility] Lipid Panel, Serum 12/25/2018 [facility] CMP, Serum or Plasma 12/25/2018 [facility] CBC W/ Auto Diff 12/25/2018 [facility] Vitamin D, 25-Hydroxy, Total, Serum 12/25/2018 [facility] INR, Plasma 12/25/2018 [facility] Erythrocyte Sedimentation Rate by Westergren Met hod 12/25/2018 [facility] Iron + TIBC + Ferritin, Serum 12/25/2018 [facility] Vitamin B12 + Folate, Serum or Blood 12/25/2018 [facility] HbA1C (Hemoglobin a1C), Blood 12/25/2018 [facility] Referral Cardiology Referral 12/25/2018 Mikala sims MD Rheumatology Referral 12/25/2018 Fredy Schmid MD Dermatology Referral 12/25/2018 Scot danielle MD Cardiology Referral 12/27/2018 Procedures None recorded. Surgeries None recorded. Imaging None recorded. Medications Name Start Date amlodipine 5 mg tablet Take 1 tablet twice a day by oral route. ergocalciferol (vitamin D2) 50,000 unit capsule 74880 units by oral route. iron 325 mg (65 mg iron) tablet 325 mg by oral route. metoprolol succinate ER 50 mg tablet,ext ended release 24 hr 1 PO BID oxybutynin chloride 5 mg tablet Take 1 tablet every day by oral route as needed. pantoprazole 40 mg tablet,delayed releas e Take 1 tablet every day by oral route for 90 days. rosuvastatin 40 mg tablet Take 1 tablet every day by oral route for 30 days. Medications Administered None recorded. Vitals Height Weight BMI Blood Pressure 4 ft 9 in 94 lbs 20.3 kg/m2 (1) 145/96 mm[H g] (2) 151/92 mm[Hg] Results Lab Results None recorded. Allergies Code Code System Name Reaction Severity Status Onset 8120 RxNorm Phenazopyridine Rash Mild Active 08/2012 2670 RxNorm Codeine Active 12/04/2014 Iodinated Contrast Media Activ e 12/04/2014 Morphine Active 12/04/2014 Penicillins Active 12/05/19 15 388412 RxNorm Percodan Active 12/04/2014 3282150 RxNorm Tetracycline Active 015 7052 RxNorm Morphine Active 03/25/2015 947539 RxNorm Bactrim Rash Mild to Moderate Active 737770 RxNorm Levaquin Active Problems Name Status Onset Date Source Chronic Pain Syndrome Active 03/27/2014 Benign Hypertensive Heart Disease without Congestive Heart F ailure Active 03/27/2014 Disorder of Cardiac Function Active 03/27/2014 Midline Cystocele Active 03/27/2014 Osteoporosis Active 03/27/2014 Patient Post Percutaneous Transluminal Coronary Angioplasty Acti ve 03/27/2014 Hyperlipidemia Active 03/28/2014 Anemia Active 04/04/2014 Insomnia Active 04/04/2014 Coronary Arteriosclerosis Active 04/04/2014 Cardiac Insufficiency Following Cardiac Surgery Active 04/04/2014 Impending Cerebral Ischemia Active 04/04/2014 Gastroesophageal Reflux Disease Active 04/04/2014 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 without Perforation or Abscess Active 04/04/2014 Urinary Incontinence Active 04/04/2014 Precordial Pain Active 03/25/2015 Hypertensive Disorder Active 04/02/2015 Retrosternal Pain Active 04/02/2015 Lower Gastrointestinal Hemorrhage Active 06/20/2015 Acute Posthemorrhagic Anemia Active 06/21/2015 Calcific Coronary Arteriosclerosis Active 06/21/2015 Coronary Arteriosclerosis in [place] Artery Active 07/07 Atrial Fibrillation with Rapid Ventricular Response Active 07/08/2015 Low Blood Pressure Active 07/08/2015 Ischemic Colitis Active 07/08/2015 Polymyalgia Rheumatica Active 07/08/2015 Compression Fracture of Lumbar Spine Active 07/08/2015 Physical Deconditioning Active 07/08/2015 Procedures Date Name Performed by 04/20/2018 Pacemaker Information not avai lable Other Information not avai lable Hysterectomy (Total) Information not rafa ilable Cataract Surgery Information not avai lable Vaccine List Vaccine Type influenza, high dose seasonal 12/25/20180.5 mL pneumococcal conjugate PCV 13 07/23/20160.5 mL pneumococcal polysaccharide PPV23 08/15/20170.5 mL Social History Tobacco Smoking Status Never Smoker Past Encounters 12/25/2018 Atrial Fibrillation with Rapid Ventricular Response; Body Mass Index 20-24 - Normal; Normal Grief Reaction; Coronary Arteriosclerosis in [place] Artery; Anemia; Hypertensive Disorder; Influenza Vaccination; Cardiac Pacemaker in Situ; Osteoporosis; Polymyalgia Rheumatica; Lower Gastrointestinal Hemorrhage; Prediabetes; Lesion of Skin of Face; Senile Purpura Homa Strong MD: [address] [place] [address], Ph. History of Present Illness Note:<div>88yo female presents for six-month follow-up visit. Last visit on 06/27/18. Since last visit, pt was hospitalized from 04/13/18 to 04/21/18. Had been at foundry manager's office, Dr Shimon Balderrama on 04/13/18 for infected pacemaker & was sent immediately to [facility]. Had infected pacemaker removed & new pacemaker placed on 04/19/18. Was treated with IV antibiotics & followed by cardiology & ID in hospital. </div><div>Since last visit, pt's of nearly 66yrs (he had a stroke in May 2017 & amp; has been bedridden since then) on October 08, 2018. Pt is living at oldest s on's house with younger son also. Has good support - all three sons are [employer] outs. was very loving & last words were "I love you" to pt. Excellent . Blessed life. Pt has lost & nine older siblings. </div><div>Declines counseling. Gets medications from foundry manager, Dr Vences.< /div><div>
</div><div>Current meds reviewed:</div><div>amlodipine 5mg qd</div ><div>vit D 50,000u weekly</div><div>coumadin 2.5mg qd
</div><div>iron 65mg qd</div><div>metoprolol ER 50mg bid</div><div>oxybutynin 5mg qd</div><div> pantoprazole 40mg qd</div><div>rosuvastatin 40mg qhs
</div><div>
</div>< div>Previously:</div><div>Recently came into office for fasting labs on 06/23/18 with hgb A1c 5.9%, TSH 1.329, TC 169, HDL 58, LDL 91, TG 99, AST 23, glu 81, Cr 0.82, GFR >60, K 4.2, Ca 9.8, hgb 11.9, wbc 4.4, plt 224K. Labs printed & amp; reviewed with pt.</div><div>Here today for medication refills & updated referrals.</div><div>
</div><div>PMHx:</div><div>Hx of pacemaker & two stents in heart (2006 & 2015). Followed by Dr. Vences, cardiology. Has been on warfarin since 2006. Also on Plavix.</div><div>Hx of CVA in 1999.</div><div> Hx of atrial fibrillation. Intermittent. On anticoagulation.</div><div>Hx of hypertension</div><div>Hx of PMR. Requests rheumatology evaluation. On plaquenil & prednisone.</div><div>Hx of chronic backpain from compression fractures. Requests care management.</div><div>Hx of chronic anemia. Hgb about 10.5 in past.</div><div>Hx of urinary incontinence with severe dropped bladder. Has had two surgeries. Followed by kidney doctor & door puller in past. Will refill oxybutynin & place referral to urogynecology.</div><div>Hx of hyperlipidemia - currently on simvastatin.</div><div>Hx of osteoporosis - currently on vit D [...] no oral abnormalities Cardiovascular: Cardiovascular: no chest miranda n, no shortness of breath when walking, no shortness of breath when lying down, no palpitations, no lightheadedness Respiratory: Respiratory: no cough, no wh eezing, no shortness of breath, no coughing up blood, no sleep apnea Gastrointestinal: Gastrointestinal: no abdomin al pain, no nausea, no vomiting, normal appetite, no diarrhea, no GERD Genitourinary: Genitourinary: ; vaginal dry ness Musculoskeletal: Musculoskeletal: muscle ache s, muscle weakness, arthralgias/joint pain, back pain; PT HAS 2 HERNIATED DISKS AND PMR. SEE'S ORTHO Neurologic: Neurologic: no loss of consc iousness, no numbness, no seizures, no dizziness, no headaches, no tremor Psychiatric: Psych: no depression, no anx iety, no hallucinations, no suicidal thoughts Endocrine: Endocrine: no fatigue Physical Exam Lower Leg, General Adult Exa dada (Female) Reported By: Patient Constitutional: General Appearance: healthy- appearing, NAD, well-nourished, well-developed; elderly. Ambulation: ambulating normally Gait and Station: Appearance: normal gait Cardiovascular System: Edema Right: none. Edema Lef t: none. Apical Impulse: not displaced. Heart Auscultation: normal S1, irregularly irregular, murmur; severe tricuspid regurg on echo 04/2018. Neck vessels: no carotid bruits. Pulses including femoral / pedal: normal throughout Skin: Inspection and palpation: no rash, lesion; pacemaker pocket without erythema on left upper chest. Has small nonpigmented lesion on medial side right eyebrow about 5mm - was dark, but now flesh-toned again Psychiatric: Mood and Affect: active and alert, anxious Eyes: Lids and Conjunctivae: non-i njected. Pupils: PERRLA. EOM: EOMI. Sclerae: non-icteric ENMT: Hearing: no hearing loss. Or opharynx: moist mucous membranes Neck: Neck: supple, trachea midlin e, no masses, FROM. Lymph Nodes: no cervical LAD, no supraclavicular LAD, no axillary LAD, no inguinal LAD. Thyroid: no enlargement, non-tender, no nodules Lungs: Respiratory effort: no dyspn ea. Percussion: no dullness, flatness, or hyperresonance. Auscultation: breath sounds normal, good air movement, CTA except as noted, no wheezing, no rales/crackles, no rhonchi Abdomen: Bowel Sounds: normal. Inspec tion and Palpation: soft Musculoskeletal:: Joints, Bones, and Muscles: normal movement of all extremities. Extremities: no edema
--- OUTSIDE RECORDS SUMMARY | 2019-10-15 14:39 | XMS REPORT | Clinical Summary ---
Author Author [facility] Address Unknown Phone Unavailable Care Team Providers Care It Sales Representative Name Role Phone Ajit Anand MD PCP Unavailable Allergies Comments Active Allergy Reactions Severity Noted Date Codeine Nausea And 09/16/2012 Vomiting rash Iodine And Iodide 03/25/2015 Containing Products unknown Levofloxacin Other (See 09/16/2012 Comments) nausea Morphine 03/25/2015 Penicillins Rash Low 09/16/2012 Oxycodone Nausea And 09/16/2012 Hbm-Nuryiebah-Wmj Vomiting Phenazopyridine Rash Low 09/16/2012 Tetracyclines Rash Low 09/16/2012 Medications End Date Status Medication Sig Dispensed Refills Start Date Active omeprazole (PRILOSEC) 20 Take 20 mg by 0 MG capsule mouth daily. Active warfarin (COUMADIN) 2.5 Take 2.5 mg 0 11/15/ 201 MG tablet by mouth 4 daily. Active [...] 6 (six) hours as needed for Pain. 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 Paroxysmal atrial fibrillation 04/13/2018 PMR (polymyalgia rheumatica) 04/13/2018 Atrial fibrillation with RVR 07/08/2015 Hypotension 07/08/2015 Ischemic colitis 07/08/2015 Polymyalgia rheumatica 07/08/2015 Compression fracture of L4 lumbar vertebra 6 CAD (coronary artery disease), [place] coronary artery 07/08/2015 Physical deconditioning 07/08/2015 Coronary atherosclerosis due to calcified coronary [place] artery 06/21/2015 Acute blood loss anemia 06/21/2015 Lower GI bleed 06/20/2015 Substernal chest pain 04/02/2015 Hypertension 04/02/2015 Precordial pain 03/25/2015 Immunizations Name Dates Previously Given Next Due [...] travel history available. Last Filed Vital Signs Not on file Plan of Treatment Not on file Implants Device Identifier Shelf Expiration Date Model / Serial / L ot Implanted Type Area Manufactur er 06/09/2019 [id number] / [id number] / Pacemkr Sgl Micra Transcath - Pacemakers Right: Heart [employer]: [id number] CARD Implanted: Qty: 1 on 04/19/2018 by TERRAY:PACING Jerrell Smith MD SYS 06/03/2016 [id number] / / [id number] Promus Premier [place] Implanted: Qty: 1 on 03/27/2015 SCIENTIFIC 08/25/2016 [id number] / [id number] / Advisa Dr Luis Felipe Magana / [id number] [employer] Implanted: Qty: 1 on 04/17/2015 Results Not on fileafter 10/14/2018 Insurance Payer Benefit Subscriber ID Type Phone Address Plan / Group MEDICARE MEDICARE A xxxxxxxxxxx Medicare B MCR SUPPLEMENT/INDIVIDUAL AARP/UNITE xxxxxxxxxxx [facility] gap D HEALTHCARE [id number] Advance Directives Patient has advance care planning documents, and code status on file. For more i nformation, please contact: [facility] [address] [place] [address] Date Inactivated Comments Code Status Date Activated [...]
[2019-10-15] MEDS ORDERED: ONDANSETRON HCL 4 MG ORAL DISINTEGRATING TAB PO ONE (15:00)
[2019-10-15] MEDS ORDERED: MECLIZINE HCL 12.5 MG TAB PO ONE (15:00)
[2019-10-15] MEDS ORDERED: ONDANSETRON HCL 4 MG ORAL DISINTEGRATING TAB ONE (15:28)
[2019-10-15] MEDS ORDERED: MECLIZINE HCL 12.5 MG TAB ONE (15:28)
--- NOTE | 2019-10-15 16:39 | Diagnostic Imaging Report ---
Exam: Head CT without contrast History: Trauma, fall, hit left amish, nausea, dizziness Comparison studies: None Technique: Axial images were obtained from the skull base to the vertex. Coronal and sagittal images reconstructed from the axial data. Dose modulation, iterative reconstruction, and/or weight based adjustment of the mA/kV was utilized to reduce the radiation dose to as low as reasonably achievable. Radiation dose: Total DLP: 969.14 mGy*cm. Estimated effective dose: DLP x 0.015 Intravenous contrast: None Findings: Scalp: No abnormalities. Bones: No fractures, blastic or lytic lesions. Brain sulci: Mildly prominent Ventricles: Mild compensatory dilatation. No hydrocephalus. Extra-axial spaces: No masses, no fluid collection. Parenchyma: Ill-defined and confluent hypodensities in the supratentorial white matter are nonspecific but are most compatible with chronic microvascular ischemic changes. No mass, acute hemorrhage or acute or chronic cortical insults. Sellar/suprasellar region: No abnormalities. Craniocervical junction: Patent foramen magnum. No Chiari one malformation. Incidental findings: Atherosclerotic calcifications in the carotid siphons. Surgical clips in the suboccipital soft tissues which can be correlated with surgical history. IMPRESSION: No acute abnormalities. Chronic findings: 1. Mild generalized parenchymal volume loss. 2. Chronic microvascular ischemic changes. Signed by: Dr. Jonah Haile M.D. on 10/15/2019 4:36 PM
--- NOTE | 2019-10-15 16:46 | NUR ---
patient reports that her dizziness is much better and she's ready to go home
[2019-10-15] MEDS ORDERED: MECLIZINE HCL25 MG PO (16:54)
[2019-10-15] MEDS ORDERED: IBUPROFEN600 MG PO (16:54)
[2019-10-15] MEDS ORDERED: ONDANSETRON ODT8 MG PO (16:54)
--- NOTE | 2019-10-15 16:54 | Emergency Department Note ---
History of Present Illnes History of Present Illness Chief Complaint: left Headache s/p fall and hit head on ground History of Present Illness This is a 88 year old female . Historian: Patient Arrival Mode: Car History limited by: condition of the patient Retort Fireman Required: No Onset (how long ago): day(s) (2) Location: left tenriism Quality: sharp Radiation: Reports non-radiation Severity: moderate Onset quality: sudden Duration (how long): day(s) (2) Timing of current episode: constant Progression: worsening Chronicity: new Context: Reports trauma/injury; Denies recent illness, Denies recent surgery, Denies recent immobilization, Denies recent travel, Denies new medications, Denies hx of DVT/PE, Denies non- compliance w/ medications Relieving factors: movement Exacerbating factors: none Associated symptoms: Reports nausea/vomiting, Reports other (room spinning) Treatments prior to arrival: none Past Medical/Family History Physician Review I have reviewed the patient's past medical and family history. Any updates have been documented here. Past Medical History Recent Fever: No Clinical Suspicion of Infectio: No New/Unexplained Change in Ment: No Past Medical History: Hypertension, A-Fib, CAD, GERD, Hyperlipedemia, Osteoarthritis Other Medical History: COMPOUND FRACTURES OF SPINE Past Surgical History: Pacer/AICD Social History Smoking Cessation: Never Smoker Alcohol Use: None Any Illegal Drug Use: No Other Last Tetanus: UNK Any Pre-Existing Lines (PICC,: No Review of Systems Review of Systems Constitutional: Reports no symptoms EENTM: Reports no symptoms Cardiovascular: Reports no symptoms Respiratory: Reports no symptoms Gastrointestinal: Reports no symptoms Genitourinary: Reports no symptoms Musculoskeletal: Reports no symptoms Integumentary: Reports no symptoms Neurological: Reports as per HPI Psychological: Reports no symptoms Endocrine: Reports no symptoms Hematological/Lymphatic: Reports no symptoms Review of other systems: All other systems negative Physical Exam Related Data Allergies: Coded Allergies: Penicillins (Verified Allergy, Unknown, 10/29/18) acetaminophen (Verified Allergy, Unknown, 10/29/18) codeine (Verified Allergy, Unknown, 10/29/18) iodine (Verified Allergy, Unknown, 10/29/18) levofloxacin (Verified Allergy, Unknown, 10/29/18) morphine (Verified Allergy, Unknown, 10/29/18) oxycodone (Verified Allergy, Unknown, 10/29/18) phenazopyridine (Verified Allergy, Unknown, 10/29/18) tetracycline (Verified Allergy, Unknown, 10/29/18) Triage Vital Signs Vital Signs Date Time Temp Pulse Resp B/P (MAP) Pulse Ox O2 Delivery O2 Flow Rate FiO2 10/15/19 14:31 98.4 99 16 167/75 97 Room Air Vital signs reviewed: Yes Physical Exam CONSTITUTIONAL Constitutional: Present well-developed, Present well-nourished HENT HENT: Present normocephalic, Present oropharynx clear/moist, Present nose normal, Present other (left tenriism tenderness/ +fatigueable horizontal nystagmus ) HENT L/R: Present left ext ear normal, Present right ext ear normal EYES Eyes: Reports PERRL, Reports conjunctivae normal NECK Neck: Present ROM normal PULMONARY Pulmonary: Present effort normal, Present breath sounds normal CARDIOVASCULAR Cardiovascular: Present regular rhythm, Present heart sounds normal, Present capillary refill normal, Present normal rate GASTROINTESTINAL Abdominal: Present soft, Present nontender, Present bowel sounds normal GENITOURINARY Genitourinary: Present exam deferred SKIN Skin: Present warm, Present dry MUSCULOSKELETAL Musculoskeletal: Present ROM normal NEUROLOGICAL Neurological: Present alert, Present oriented x 3, Present no gross motor or sensory deficits PSYCHOLOGICAL Psychological: Present mood/affect normal, Present judgement normal Results Imaging Imaging results reviewed: Yes (ct head = neg) Assessment & Plan Medical Decision Making MDM concusion, contusion, vertigo Reassessment Reassessment symptoms resolved Assessment & Plan Final Impression: (1) Concussion (2) Head contusion (3) Vertigo Depart Disposition: HOME, SELF-CARE Last Vital Signs Date Time Temp Pulse Resp B/P (MAP) Pulse Ox O2 Delivery O2 Flow Rate FiO2 10/15/19 14:31 98.4 99 16 167/75 97 Room Air Home Meds Active Scripts Ibuprofen (IBUPROFEN) 600 Mg Tablet, 600 MG PO Q8H PRN for MODERATE PAIN (4-6), #21 TAB Prov:DEMI CHAVARRIA 10/15/19 Meclizine Hcl (MECLIZINE HCL) 25 Mg Tablet, 25 MG PO Q8H PRN for DIZZINESS, #21 TAB PRN ROOM SPINNING Prov:DEMI CHAVARRIA 10/15/19 Ondansetron (ONDANSETRON ODT) 8 Mg Tab.rapdis, 4 MG PO Q4HR PRN for NAUSEA AND VOMITING, #20 TAB 1 Refill Prov:DEMI CHAVARRIA 10/15/19 Medications in the ED Ondansetron HCl 4 mg ONCE ONCE PO Last administered on 10/15/19at 15:22; Admin Dose 4 MG; Start 10/15/19 at 15:00; Stop 10/15/19 at 15:11; Status DC Meclizine HCl 25 mg ONCE ONCE PO Last administered on 10/15/19at 15:22; Admin Dose 25 MG; Start 10/15/19 at 15:00; Stop 10/15/19 at 15:11; Status DC Ondansetron HCl 4 mg STK-MED ONCE .ROUTE ; Start 10/15/19 at 15:28; Stop 10/15/19 at 15:22; Status DC Meclizine HCl 25 mg STK-MED ONCE .ROUTE ; Start 10/15/19 at 15:28; Stop 10/15/19 at 15:22; Status DC DEMI CHAVARRIA Oct 15, 2019 16:54
== END 2019-10-15 17:10 | disposition home or self-care (01) ==
LOC: FSED 14:36
DX: S06.0X0A Concussion without loss of consciousness, initial encounter (principal); R42 Dizziness and giddiness; W18.30XA Fall on same level, unspecified, initial encounter; I10 Essential (primary) hypertension; I25.10 Atherosclerotic heart disease of native coronary artery without angina pectoris; I48.91 Unspecified atrial fibrillation; E78.5 Hyperlipidemia, unspecified; K21.9 Gastro-esophageal reflux disease without esophagitis; Z95.810 Presence of automatic (implantable) cardiac defibrillator
CPT/HCPCS: 70450; 99283; J8597; Q0162